=== PATIENT | female | born 1970 | race Caucasian/White ===

== ENCOUNTER 2017-10-07 09:51 | Emergency (ER) | payer OTHER, SELFPAY ==
[2017-10-07] MEDS ORDERED: ASPIRIN 81 MG CHEWABLE TABLET ONE (10:27)
[2017-10-07] MEDS ORDERED: FAMOTIDINE 20 MG/2 ML VIAL IV ONE (10:28)
[2017-10-07] MEDS ORDERED: ONDANSETRON 4 MG/2 ML VIAL ONE (10:28)
[2017-10-07 10:55] LABS: Absolute Lymphocytes (CBC) 1.1 K/uL (0.7-4.9); Absolute Monocytes 0.5 K/uL (0.1-1.3); Absolute Neutrophil 4.5 K/uL (1.8-8.0); Basophils % 0.7 % (0-1.3); Eosinophils % 2.2 % (0-4.4); Hematocrit 41.7 % (36.0-45.0); Lymphocytes % 18.1 % (15.3-44.8); MCH 28.9 pg (27.0-35.0); MCV 85.2 fL (80-100); MPV 8.3 fL (7.6-11.3); Monocytes % 7.4 % (3.3-12.3); RBC Red Blood Cell Count 4.89 M/uL (3.86-4.86)
[2017-10-07 10:59] LABS: Protime INR 1.2
[2017-10-07 11:29] LABS: Albumin 4.2 g/dL (3.2-5.5); Bilirubin Direct 0.1 mg/dL (0-0.2); Bilirubin Total 0.8 mg/dL (0.3-1.2); Magnesium 1.9 mg/dL (1.8-2.5); Protein, Total 7.9 g/dL (6.0-8.3)
[2017-10-07 11:31] LABS: CKMB Creatine Kinase MB 1.3 ng/ml (0.3-4.0)
[2017-10-07 11:35] LABS: Potassium 2.7 mEq/L (3.6-5.0)
[2017-10-07] MEDS ORDERED: POTASSIUM 25 MEQ EFFERV TAB ONE (11:46)
[2017-10-07] MEDS ORDERED: KCL 20 MEQ/100 mL IVPB 20 MEQ/100 ML BAG IV ONE (11:46)
--- NOTE | 2017-10-07 12:05 | RAD REPORT ---
EXAM DESCRIPTION: RAD - Chest Single View - 10/07/2017 11:50 am CLINICAL HISTORY: Chest pain. COMPARISON: 04/18/2017 FINDINGS: Portable technique limits examination quality. The lungs are grossly clear. The heart is normal in size. No displaced fractures. IMPRESSION: No acute intrathoracic process suspected.
[2017-10-07] MEDS ORDERED: NA CHLORIDE 0.9% 500 ML ONE (12:08)
[2017-10-07 12:13] LABS: Barbiturates NEGATIVE; Benzodiazepines NEGATIVE; Cocaine NEGATIVE; METHAMPHETAM NEGATIVE; Opiates NEGATIVE; Phencyclidine NEGATIVE; THC Cannibis NEGATIVE
[2017-10-07 12:36] LABS: Urine Blood NEGATIVE (NEG); Urine Glucose NEGATIVE (NEG); Urine Protein 1+ (NEG); Urine Specific Gravity 1.025 (1.005-1.030)
--- NOTE | 2017-10-07 12:55 | EKG ---
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
[2017-10-07 15:38] LABS: Potassium 3.5 mEq/L (3.6-5.0)
--- NOTE | 2017-10-07 16:15 | EDPHYS ---
Physician Documentation [facility] Name: Kyra Mead Age: 47 yrs Sex: Female : 1970 Arrival Date: 10/07/2017 Time: 09:55 Bed 5 Private MD: ED Physician Matthew Ngo HPI: 10/07 10:25 This 47 yrs old Female presents to ER via Wheelchair with complaints of Chest cp Pain. 10:25 The patient or guardian reports chest pain that is located primarily in the anterior cp chest wall, left. Onset: yesterday. 10:25 The pain does not radiate. cp 10:25 Associated signs and symptoms: Pertinent positives: nausea, anxiety, diarrhea for 4 cp weeks, Pertinent negatives: abdominal pain, diaphoresis, lower extremity pain, lower extremity swelling, palpitations, shortness of breath, syncope. 10:25 The chest pain is described as a pressure. Duration: The patient or guardian reports a cp single episode, that is still ongoing, and unchanged. Historical: - Allergies: 10:13 No Known Allergies; iw - Home Meds: 10:13 Celexa Oral [Active]; Hydrochlorothiazide Oral [Active]; Iron CR Oral [Active]; Zyrtec iw Oral [Active]; - PMHx: 10:13 Hypertension; iw - PSHx: 10:13 ; iw - Immunization history:: Adult Immunizations unknown. - Social history:: Smoking status: . ROS: 10:30 Constitutional: Negative for body aches, chills, fever, poor PO intake. cp 10:30 Eyes: Negative for injury, pain, redness, and discharge. cp 10:30 ENT: Negative for drainage from ear(s), ear pain, sore throat, difficulty swallowing, difficulty handling secretions. 10:30 Cardiovascular: Positive for chest pain, Negative for edema, palpitations. 10:30 Respiratory: Negative for cough, dyspnea on exertion, shortness of breath, wheezing. 10:30 Abdomen/GI: Positive for nausea, diarrhea, Negative for abdominal pain, constipation, anorexia, black/tarry stool, rectal bleeding. 10:30 Back: Negative for pain at rest, pain with movement. 10:30 : Negative for urinary symptoms. 10:30 Skin: Negative for cellulitis, diaphoresis, rash. 10:30 Neuro: Negative for altered mental status, headache, weakness. 10:30 Psych: Positive for anxiety. 10:30 All other systems are negative. Exam: 10:48 Constitutional: The patient appears in no acute distress, alert, awake, cp non-diaphoretic, non-toxic, well developed, well nourished. 10:48 Head/Face: Normocephalic, atraumatic. Eyes: Pupils equal round and reactive to light, cp extra-ocular motions intact. Lids and lashes normal. Conjunctiva and sclera are non-icteric and not injected. Cornea within normal limits. Periorbital areas with no swelling, redness, or edema. ENT: Nares patent. No nasal discharge, no septal abnormalities noted. Tympanic membranes are normal and external auditory canals are clear. Oropharynx with no redness, swelling, or masses, exudates, or evidence of obstruction, uvula midline. Mucous membranes moist. Neck: Trachea midline, no thyromegaly or masses palpated, and no cervical lymphadenopathy. Supple, full range of motion without nuchal rigidity, or vertebral point tenderness. No Meningismus. 10:48 Chest/axilla: Inspection: normal, Palpation: crepitus, is not appreciated, tenderness, that is mild, of the anterior aspect of left upper chest. 10:48 Cardiovascular: Rate: normal, Rhythm: regular, Pulses: Pulses are 2+ in right radial artery and left radial artery. Heart sounds: normal, no murmur, no rub, no gallop, Edema: is not appreciated, JVD: is not appreciated. 10:48 Respiratory: the patient does not display signs of respiratory distress, Respirations: normal, no use of accessory muscles, no retractions, no splinting, no tachypnea, labored breathing, is not present, Breath sounds: are clear throughout, no decreased breath sounds, no stridor, no wheezing. 10:48 Abdomen/GI: Inspection: abdomen appears normal, Bowel sounds: active, all quadrants, Palpation: soft, in all quadrants, mild abdominal tenderness, in the epigastric area, rebound tenderness, is not appreciated, voluntary guarding, is not appreciated, involuntary guarding, is not appreciated. 10:48 Back: CVA tenderness, is absent. 10:48 Skin: cellulitis, is not appreciated, no rash present. 12:00 ECG was reviewed by the Attending Physician. cp 15:35 ECG was reviewed by the Attending Physician. cp Vital Signs: 10:13 BP 112 / 64; Pulse 91; Resp 18 S; Temp 97.5; Pulse Ox 98% on R/A; Pain 2/10; iw 11:15 BP 116 / 78; Pulse 89; Resp 16; Pulse Ox 99% on R/A; tw2 12:13 BP 143 / 68; Pulse 75; Resp 14; Pulse Ox 99% on R/A; tw2 13:30 BP 138 / 72; Pulse 78; Resp 17; Pulse Ox 100% on R/A; Pain 0/10; sg 14:30 BP 142 / 70; Pulse 77; Resp 17 S; Pulse Ox 100% on R/A; Pain 0/10; sg 15:30 BP 136 / 74; Pulse 78; Resp 17 S; Pulse Ox 99% on R/A; Pain 0/10; sg 16:25 BP 139 / 72; Pulse 74; Resp 17; Pulse Ox 99% on R/A; Pain 0/10; sg MDM: 10:15 Patient medically screened. cp 11:00 Differential diagnosis: abnormal EKG, acute myocardial infarction, acute pericarditis, cp chest wall pain, costochondritis, esophagitis, gastritis, pneumonia, pneumothorax, pulmonary embolus, stable angina, unstable angina. 16:10 The patient was given aspirin in the Emergency Department. cp 16:10 Data reviewed: vital signs, nurses notes, lab test result(s), EKG, radiologic studies, cp plain films. Test interpretation: by ED physician or midlevel provider: ECG, plain radiologic studies. Counseling: I had a detailed discussion with the patient and/or guardian regarding: the historical points, exam findings, and any diagnostic results supporting the discharge/admit diagnosis, the presence of at least one elevated blood pressure reading (>120/80) during this emergency department visit, lab results, radiology results, to return to the emergency department if symptoms worsen or persist or if there are any questions or concerns that arise at home. Response to treatment: the patient's symptoms have markedly improved after treatment, VSS. Symptoms improved with IV fluids and meds. Initial and repeat EKGs and troponin negative. Will discharge to home for continued monitoring. 10/07 10:18 Order name: Basic Metabolic Panel; Complete Time: 11:36 cp 10/07 12:05 Interpretation: Normal except: GLUC 145; K 2.7; CRE 1.08; GFR 54. cp / 10:18 Order name: BNP; Complete Time: 12:04 cp 10/07 10:18 Order name: CBC with Diff; Complete Time: 11:09 cp 10/07 11:09 Interpretation: Normal except: RBC 4.89; RDW 15.8. cp / 10:18 Order name: Ckmb; Complete Time: 11:36 cp 10/07 10:18 Order name: CPK; Complete Time: 11:36 cp 10/07 10:18 Order name: LFT's; Complete Time: 11:36 cp 10/07 15:47 Interpretation: Normal except: SGOT 51; SGPT 62; GLOB 3.7. cp 10/07 10:18 Order name: Magnesium; Complete Time: 11:36 cp 10/07 10:18 Order name: PT-INR; Complete Time: 11:09 cp 10/07 11:09 Interpretation: Abnormal: PT 14.2. cp 10/07 10:18 Order name: Ptt, Activated; Complete Time: 11:09 cp 10/07 10:18 Order name: Troponin (emerg Dept Use Only); Complete Time: 11:36 cp 10/07 10:45 Order name: UDS; Complete Time: 13:58 cp 10/07 13:58 Interpretation: Reviewed. cp 10/07 10:56 Order name: Urine Dipstick--Ancillary (enter results); Complete Time: 13:58 bd 10/07 13:58 Interpretation: Normal except: UPROT 1+. cp 10/07 10:56 Order name: Urine --Ancillary (enter results); Complete Time: 13:58 bd 10/07 14:42 Order name: BMP; Complete Time: 15:46 cp 10/07 15:48 Interpretation: Normal except: K 3.5; GLUC 126; CRE 1.06; GFR 56. cp 10/07 10:18 Order name: Urine Test (obtain specimen); Complete Time: 10:56 cp 10/07 10:18 Order name: XRAY Chest (1 view); Complete Time: 13:58 cp 10/07 10:18 Order name: EKG; Complete Time: 10:19 cp 10/07 10:18 Order name: Cardiac monitoring; Complete Time: 10:26 cp 04/20 10:18 Order name: EKG - Nurse/Tech; Complete Time: 10: cp 10/07 10:18 Order name: IV Saline Lock; Complete Time: : cp 10/07 10:18 Order name: Labs collected and sent; Complete Time: 10: cp 10/07 13:23 Order name: Diet Regular; Complete Time: 13:23 iw 10/07 14:42 Order name: Troponin I; Complete Time: 15:47 cp 10/07 15:48 Interpretation: Within normal limits: TROP < 0.03. cp 10/07 15:38 Order name: EKG Electrocardiogram EDMS 10/07 10:18 Order name: O2 Per Protocol; Complete Time: 10: cp 10/07 10:18 Order name: O2 Sat Monitoring; Complete Time: : cp 10/07 10:18 Order name: Urine Dipstick-Ancillary (obtain specimen); Complete Time: 10:56 cp 10/07 14:42 Order name: EKG - Nurse/Tech; Complete Time: 15:25 cp EC:00 Rate is 76 beats/min. Rhythm is regular. MN interval is normal. QRS interval is cp prolonged at 102 msec. QT interval is normal. Interpreted by me. Reviewed by me. 15:35 Rate is 71 beats/min. Rhythm is regular. MN interval is normal. QRS interval is normal. cp QT interval is normal. No ST changes noted. Interpreted by me. Reviewed by me. Administered Medications: 10:40 Drug: Zofran 4 mg Route: IVP; Site: right antecubital; sg 11:45 Follow up: Response: No adverse reaction; Nausea is decreased sg 10:40 Drug: Pepcid 20 mg Route: IVP; Site: right antecubital; sg 11:45 Follow up: Response: No adverse reaction sg 11:10 Drug: Aspirin Chewable Tablet 324 mg Route: PO; sg 12:16 Follow up: Response: No adverse reaction sg 12:00 Drug: Potassium Chloride 20 mEq Route: IV; Rate: calculated rate; Site: right sg antecubital; 12:00 Drug: Potassium Effervescent Tablet 50 mEq Route: PO; sg 13:25 Follow up: Response: No adverse reaction sg Disposition: 10/07/17 16:14 Discharged to Home. Impression: Chest pain, unspecified, Diarrhea, unspecified, Hypokalemia. - Condition is Stable. - Discharge Instructions: Food Choices to Help Relieve Diarrhea, Adult, Nonspecific Chest Pain, Diarrhea, Potassium Content of Foods, Aspirin and Your Heart, Hypokalemia. - Prescriptions for Potassium Chloride 10 mEq Oral Capsule, Sustained Release - take 1 tablet by ORAL route every 12 hours for 5 days; 10 tablet. Bentyl 20 mg Oral Tablet - take 1 tablet by ORAL route every 6 hours As needed; 20 tablet. Zofran 4 mg Oral Tablet - take 1 tablet by ORAL route every 12 hours As needed; 20 tablet. - Work release form, Medication Reconciliation Form, Thank You Letter, Antibiotic Education, Prescription Opioid Use form. - Follow up: Private Physician; When: 2 - 3 days; Reason: Recheck today's complaints. Follow up: Fady Saucedo MD; When: 2 - 3 days; Reason: diarrhea. - Problem is new. - Symptoms have improved. Addendum: 10/22/2017 19:46 Co-signature as Attending Physician, Matthew Ngo MD I agree with the assessment and k dr plan of care. Signatures: Dispatcher [employer] EDMS Arnold Torres RN RN sg Rittger, Kevin, MD MD kdr Leona Bejarano RN RN iw Rod Padilla PA PA jr8 Carlos Lopez PA PA cp Corrections: (The following items were deleted from the chart) 10/07 11:10/06 10:30 Constitutional: Negative for body aches, chills, fever, poor PO intake, cp cp 10/07 11:10/06 10:30 Eyes: Negative for injury, pain, redness, and discharge, cp cp 10/07 11:10/06 10:30 ENT: Negative for drainage from ear(s), ear pain, sore throat, difficulty cp swallowing, difficulty handling secretions, cp 10/07 11:10/06 10:30 Cardiovascular: Positive for chest pain, Negative for edema, palpitations, cp cp 10/07 11:10/06 10:30 Respiratory: Negative for cough, shortness of breath, wheezing, cp cp 10/07 11:10/06 10:30 Abdomen/GI: Positive for abdominal pain, nausea, diarrhea, Negative for cp vomiting, constipation, anorexia, black/tarry stool, rectal bleeding, cp 10/07 11:12 10/06 10:30 Back: Negative for pain at rest, pain with movement, radiated pain, cp cp 10/07 11:12 10/06 10:30 : Negative for urinary symptoms, cp cp 10/07 11:10/06 10:30 Skin: Negative for cellulitis, rash, cp cp 10/07 11:12 10/06 10:30 Neuro: Negative for altered mental status, headache, syncope, near syncope, cp weakness, cp 10/07 11:12 10/06 10:30 All other systems are negative, cp cp 10/07 16:26 16:14 10/07/2017 16:14 Discharged to Home. Impression: Chest pain, unspecified; iw Diarrhea, unspecified; Hypokalemia. Condition is Stable. Forms are Medication Reconciliation Form, Thank You Letter, Antibiotic Education, Prescription Opioid Use. Follow up: Private Physician; When: 2 - 3 days; Reason: Recheck today's complaints. Follow up: Fady Saucedo; When: 2 - 3 days; Reason: diarrhea. Problem is new. Symptoms have improved. cp
--- NOTE | 2017-10-07 16:15 | ER ---
Nurse's Notes [facility] Name: Kyra Mead Age: 47 yrs Sex: Female : 1970 Arrival Date: 10/07/2017 Time: 09:55 Bed 5 Private MD: Diagnosis: Chest pain, unspecified;Diarrhea, unspecified;Hypokalemia Presentation: 10/07 10:12 Presenting complaint: Patient states: is having really bad anxiety, takes Celexa and iw thinks she may have taken an extra pill yesterday, started having left sided CP yesterday, constant, dull, 07/30. Transition of care: patient was not received from another setting of care. Onset of symptoms was October 06, 2017. Initial Sepsis Screen: Does the patient meet any 2 criteria? No. Patient's initial sepsis screen is negative. Does the patient have a suspected source of infection? No. Patient's initial sepsis screen is negative. Care prior to arrival: None. 10:12 Method Of Arrival: Wheelchair iw 10:12 Acuity: CASSY 3 iw Historical: - Allergies: 10:13 No Known Allergies; iw - Home Meds: 10:13 Celexa Oral [Active]; Hydrochlorothiazide Oral [Active]; Iron CR Oral [Active]; Zyrtec iw Oral [Active]; - PMHx: 10:13 Hypertension; iw - PSHx: 10:13 ; iw - Immunization history:: Adult Immunizations unknown. - Social history:: Smoking status: . Screenin:15 Abuse screen: Denies threats or abuse. Denies injuries from another. Nutritional sg screening: No deficits noted. Tuberculosis screening: No symptoms or risk factors identified. Never had TB. Fall Risk None identified. Assessment: 10:15 General: Appears in no apparent distress. comfortable, well groomed, well developed, sg well nourished, Behavior is cooperative, appropriate for age, anxious, fussy. Pain: Denies pain. Quality of pain is described as reports that it is more anxiety than it is pain. Neuro: Level of Consciousness is awake, alert, obeys commands, Oriented to person, place, time, Lead Java Programmer are equal bilaterally Moves all extremities. Full function Gait is steady, Speech is normal, Facial symmetry appears normal. Cardiovascular: Heart tones S1 S2 present Capillary refill is brisk in bilateral fingers Chest pain denies CP at this time, reports anxiety. Respiratory: Airway is patent Respiratory effort is even, unlabored, Respiratory pattern is regular, symmetrical, Denies cough, shortness of breath labored breathing. GI: No deficits noted. No signs and/or symptoms were reported involving the gastrointestinal system. : No signs and/or symptoms were reported regarding the genitourinary system. EENT: No deficits noted. No signs and/or symptoms were reported regarding the EENT system. Derm: No deficits noted. Skin is pink, warm \\T\\ dry. Musculoskeletal: No signs and/or symptoms reported regarding the musculoskeletal system. 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 10:45 Reassessment: pt assisted to the restoom, even steady gait, pt provided clean catch sg urine specimen, will continue to monitor. 12:00 Reassessment: Patient appears in no apparent distress at this time. Patient and/or sg family updated on plan of care and expected duration. Pain level reassessed. Patient is alert, oriented x 3, equal unlabored respirations, skin warm/dry/pink. Reassessment: pt c/o anxiety at this time, informed awaiting urine sample results as ordered by the PCP and will ask again for orders for anxiety medication, pt stated understanding, IV fluids infusing at this time, pt remains on monitors, will continue to monitor. General: Behavior is calm, cooperative, appropriate for age, quiet. 13:30 Reassessment: Patient appears in no apparent distress at this time. Patient and/or sg family updated on plan of care and expected duration. Pain level reassessed. Patient is alert, oriented x 3, equal unlabored respirations, skin warm/dry/pink. pt requesting food at this time, Shaji ADLER notified, orders received for a regular diet tray and to repeat the potassium levels after the potassium has infused. pt stated understanding. 14:30 Reassessment: Patient appears in no apparent distress at this time. Patient and/or sg family updated on plan of care and expected duration. Pain level reassessed. Patient is alert, oriented x 3, equal unlabored respirations, skin warm/dry/pink. Patient denies pain at this time. 15:30 Reassessment: Patient appears in no apparent distress at this time. Patient and/or sg family updated on plan of care and expected duration. Pain level reassessed. Patient is alert, oriented x 3, equal unlabored respirations, skin warm/dry/pink. updated on lab results, pt stated understanding, C.Jessica ADLER updated on lab results, no new orders received at this time, awaiting a dispo, will continue to monitor Patient denies pain at this time. Patient states feeling better. Patient states symptoms have improved. Vital Signs: 10:13 BP 112 / 64; Pulse 91; Resp 18 S; Temp 97.5; Pulse Ox 98% on R/A; Pain 2/10; iw 11:15 BP 116 / 78; Pulse 89; Resp 16; Pulse Ox 99% on R/A; tw2 12:13 BP 143 / 68; Pulse 75; Resp 14; Pulse Ox 99% on R/A; tw2 13:30 BP 138 / 72; Pulse 78; Resp 17; Pulse Ox 100% on R/A; Pain 0/10; sg 14:30 BP 142 / 70; Pulse 77; Resp 17 S; Pulse Ox 100% on R/A; Pain 0/10; sg 15:30 BP 136 / 74; Pulse 78; Resp 17 S; Pulse Ox 99% on R/A; Pain 0/10; sg 16:25 BP 139 / 72; Pulse 74; Resp 17; Pulse Ox 99% on R/A; Pain 0/10; sg ED Course: 09:55 Patient arrived in ED. na 10:10 Arnold Torres, ANIA is Primary Nurse. sg 10:10 Carlos Lopez PA is PHCP. cp 10:10 Matthew Ngo MD is Attending Physician. cp 10:13 Triage completed. iw 10:13 Arm band placed on. iw 10:15 Patient has correct armband on for positive identification. Placed in gown. Bed in low sg position. Side rails up X2. security monitor on. Pulse ox on. NIBP on. Warm blanket given. Verbal reassurance given. Head of bed elevated. 10:15 Initial lab(s) drawn, by ED staff, sent to lab. IV inserted by watershed program manager Yaron. Inserted sg saline lock: 20 gauge in right antecubital area, using aseptic technique. Blood collected. Patient maintains SpO2 saturation greater than 95% on room air. 11:46 X-ray completed. Portable x-ray completed in exam room. Patient tolerated procedure ml well. 11:49 XRAY Chest (1 view) In Process Unspecified. EDMS 12:05 EKG done, by ED staff, reviewed by Carlos ADLER. jb1 15:18 Repeat lab(s) drawn. by ED staff, sent to lab. iw 15:35 EKG done, by fisheries technician. reviewed by Carlos ADLER. vh 16:10 No provider procedures requiring assistance completed. sg 16:13 Fady Saucedo MD is Referral Physician. cp 16:20 IV discontinued, intact, bleeding controlled, No redness/swelling at site. Pressure sg dressing applied. Administered Medications: 10:40 Drug: Zofran 4 mg Route: IVP; Site: right antecubital; sg 11:45 Follow up: Response: No adverse reaction; Nausea is decreased sg 10:40 Drug: Pepcid 20 mg Route: IVP; Site: right antecubital; sg 11:45 Follow up: Response: No adverse reaction sg 11:10 Drug: Aspirin Chewable Tablet 324 mg Route: PO; sg 12:16 Follow up: Response: No adverse reaction sg 12:00 Drug: Potassium Chloride 20 mEq Route: IV; Rate: calculated rate; Site: right sg antecubital; 12:00 Drug: Potassium Effervescent Tablet 50 mEq Route: PO; sg 13:25 Follow up: Response: No adverse reaction sg Outcome: 16:14 Discharge ordered by . cp 16:20 Discharged to home ambulatory, with family. sg 16:20 Condition: good 16:20 Discharge instructions given to patient, Instructed on discharge instructions, follow up and referral plans. medication usage, safety practices, Demonstrated understanding of instructions, follow-up care, medications, Prescriptions given X 3. 16:26 Patient left the ED. 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
[2017-10-07 16:42] VITALS: TEMP 97.5
[2017-10-07 16:43] VITALS: O2SAT 99
[2017-10-07 16:45] VITALS: BP 143/68
--- NOTE | 2017-10-07 22:11 | EKG ---
Test Date: 2017-10-07 Test Time: 15:28:27 Business Liaison Manager: GREG MEASUREMENT RESULTS: Intervals: Rate: 71 VT: 148 QRSD: 96 QT: 412 QTc: 447 [place]: P: 32 VT: 148 QRS: -12 T: 65 INTERPRETIVE STATEMENTS: Normal sinus rhythm Minimal voltage criteria for LVH, may be normal variant Nonspecific T wave abnormality Abnormal ECG Compared to ECG 10/07/2017 11:54:02 Left ventricular hypertrophy now present T-wave abnormality still present Electronically Signed On 10-07-17 22:10:54 CDT by Jeremy Hernandez
== END 2017-10-07 16:26 | disposition home or self-care (01) ==
LOC: ER 09:51
DX: R19.7 Diarrhea, unspecified (principal); E87.6 Hypokalemia; I10 Essential (primary) hypertension
CPT/HCPCS: 36415; 71045; 80048; 80076; 80307; 81003; 81025; 82550; 82553; 83735; 83880; 84484; 85025; 85610; 85730; 93005; 96374; 96375; 99285; J2405

== ENCOUNTER 2017-10-09 09:38 | Observation (INO) | payer SELFPAY ==
[2017-10-09] MEDS ORDERED: NA CHLORIDE 0.9% 1,000 ML ONE (10:04)
[2017-10-09] MEDS ORDERED: ASPIRIN 81 MG CHEWABLE TABLET ONE (10:04)
[2017-10-09 10:26] LABS: Absolute Lymphocytes (CBC) 1.5 K/uL (0.7-4.9); Absolute Monocytes 0.4 K/uL (0.1-1.3); Absolute Neutrophil 4.8 K/uL (1.8-8.0); Basophils % 0.6 % (0-1.3); Eosinophils % 3.2 % (0-4.4); Hematocrit 41.8 % (36.0-45.0); Lymphocytes % 20.8 % (15.3-44.8); MCH 28.5 pg (27.0-35.0); MCV 87.3 fL (80-100); MPV 8.5 fL (7.6-11.3); Monocytes % 6.1 % (3.3-12.3); RBC Red Blood Cell Count 4.79 M/uL (3.86-4.86)
[2017-10-09 10:29] LABS: Protime INR 1.16
[2017-10-09 10:34] LABS: Potassium 3.5 mEq/L (3.6-5.0)
[2017-10-09 10:40] LABS: Albumin 4.2 g/dL (3.2-5.5); Bilirubin Direct 0.1 mg/dL (0-0.2); Bilirubin Total 0.7 mg/dL (0.3-1.2); Magnesium 1.8 mg/dL (1.8-2.5); Protein, Total 7.7 g/dL (6.0-8.3)
[2017-10-09 10:42] LABS: CKMB Creatine Kinase MB 1.3 ng/ml (0.3-4.0)
--- NOTE | 2017-10-09 10:55 | ER ---
Nurse's Notes [facility] Name: Kyra Mead Age: 47 yrs Sex: Female : 1970 Arrival Date: 10/09/2017 Time: 09:39 Bed 5 Private MD: Diagnosis: Other chest pain;Diarrhea, unspecified;Hypokalemia Presentation: 10/09 09:49 Presenting complaint: Patient states: "I was here Tuesday for chest pain and diarrhea, sv they found out my potassium was low and I was discharged with potassium pills. I felt better when I left but then Tuesday I was feeling bad again and then today was no better. I haven't had a bowel movement since Tuesday. I'm having twinges on the left side of my chest. The pain starts in my left back side and comes to the front of my left chest.". Transition of care: patient was not received from another setting of care. Onset of symptoms was October 08, 2017. Care prior to arrival: None. 09:49 Method Of Arrival: Wheelchair sv 09:49 Acuity: CASSY 3 sv 09:50 Initial Sepsis Screen: Does the patient meet any 2 criteria? No. Patient's initial sv sepsis screen is negative. Does the patient have a suspected source of infection? No. Patient's initial sepsis screen is negative. Triage Assessment: 09:50 General: Appears uncomfortable, well developed, Behavior is cooperative, anxious. Pain: sv Complains of pain in left scapular area Pain radiates to anterior aspect of left upper chest Pain currently is 4 out of 10 on a pain scale. Pain began 2-3 days ago. Is intermittent, Also complains of constipation, sleeplessness. EENT: No signs and/or symptoms were reported regarding the EENT system. Neuro: Level of Consciousness is awake, alert, obeys commands, Oriented to person, place, time, situation, Moves all extremities. Full function Gait is steady, Speech is normal. Cardiovascular: Patient's skin is warm and dry. Rhythm is sinus rhythm. Respiratory: Respiratory effort is even, unlabored, Respiratory pattern is regular, symmetrical. GI: Reports constipation, since Tuesday Pt stated that she had diarrhea before Tuesday for about 4 weeks. : No signs and/or symptoms were reported regarding the genitourinary system. Derm: Skin is pink, warm \\T\\ dry. 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 - Social history:: Smoking status: Patient uses tobacco products, smokes one pack cigarettes per day. - Family history:: not pertinent. - Ebola Screening: : No symptoms or risks identified at this time. Screenin:02 Abuse screen: Denies threats or abuse. Denies injuries from another. Nutritional sv screening: No deficits noted. Tuberculosis screening: No symptoms or risk factors identified. Fall Risk None identified. Assessment: 10:12 Reassessment: See triage assessment. sv 10:54 Reassessment: Patient appears in no apparent distress at this time. No changes from sv previously documented assessment. Patient and/or family updated on plan of care and expected duration. Pain level reassessed. Patient is alert, oriented x 3, equal unlabored respirations, skin warm/dry/pink. 11:09 Reassessment: Patient appears in no apparent distress at this time. No changes from sv previously documented assessment. Patient and/or family updated on plan of care and expected duration. Pain level reassessed. Patient is alert, oriented x 3, equal unlabored respirations, skin warm/dry/pink. Informed of admission. Vital Signs: 09:49 BP 125 / 63; Pulse 75 MON; Resp 15; Temp 97.6(TE); Pulse Ox 100% on R/A; Weight 119.75 sv kg (R); Height 5 ft. 6 in. (167.64 cm) (R); Pain 4/10; 10:54 BP 130 / 69; Pulse 61 MON; Resp 16; Pulse Ox 99% ; sv 12:05 BP 126 / 65; Pulse 57; Resp 18; Pulse Ox 100% ; sv 09:49 Body Mass Index 42.61 (119.75 kg, 167.64 cm) sv 09:49 Sinus Rhythm sv 10:54 Sinus Rhythm sv ED Course: 09:39 Patient arrived in ED. as 09:48 Talat, Mary, RN is Primary Nurse. sv 09:50 Patient has correct armband on for positive identification. Placed in gown. Bed in low sv position. Call light in reach. Side rails up X2. security monitor on. Pulse ox on. NIBP on. Door closed. Head of bed elevated. 09:50 Warm blanket given. sv 09:52 Carlos Gill MD is Attending Physician. anastacia 09:59 Triage completed. sv 10:02 Arm band placed on right wrist. sv 10:05 Initial lab(s) drawn, by me, sent to lab. Inserted saline lock: 22 gauge in right sv forearm, using aseptic technique. ,using aseptic technique. diffusics Blood collected. Flushed right forearm with 5 ml normal saline. 10:13 X-ray completed. Portable x-ray completed in exam room. Patient tolerated procedure kp1 well. 10:14 XRAY Chest (1 view) In Process Unspecified. EDMS 10:45 Warm blanket given. sv 10:54 Tunde Guajardo MD is Hospitalizing Provider. anastacia 12:07 No provider procedures requiring assistance completed. Patient maintains SpO2 sg saturation greater than 95% on room air. 12:08 Patient admitted, IV remains in place. intact, No redness/swelling at site. Pressure sg dressing applied. Administered Medications: 10:09 Drug: NS 0.9% 1000 ml Route: IV; Rate: 1 bolus; Site: right forearm; sv 10:55 Follow up: Response: No adverse reaction; IV Status: Completed infusion; IV Intake: sv 1000ml 10:09 Drug: Aspirin 162 mg Route: PO; sv 10:55 Follow up: Response: No adverse reaction sv 11:09 Drug: Potassium Chloride 40 mEq Route: PO; sv 12:02 Follow up: Response: No adverse reaction sg 12:02 Follow up: Response: No adverse reaction sg 11:09 Drug: Lovenox 100 mg Route: Sub-Q; Site: left upper abdomen; sv 12:02 Follow up: Response: No adverse reaction sg Intake: 10:55 IV: 1000ml; Total: 1000ml. sv Outcome: 10:55 Decision to Hospitalize by Provider. anastacia 12:07 Admitted to Tele accompanied by cecilio, via wheelchair, room 407, with chart, Report sg called to Aline JORGE 12:07 Condition: good 12:07 Instructed on the need for admit, safety practices. 12:21 Patient left the ED. sv Signatures: Dispatcher [employer] Mary Osorio RN RN sv Gay, Steven, RN RN sg Anderson, Corey, MD MD cha Martinez, Amelia as Poole, [facility]
--- NOTE | 2017-10-09 10:56 | EDPHYS ---
Physician Documentation [facility] Name: Kyra Mead Age: 47 yrs Sex: Female : 1970 Arrival Date: 10/09/2017 Time: 09:39 Bed 5 Private MD: ED Physician Carlos Gill HPI: 10/09 09:58 This 47 yrs old Female presents to ER via Unassigned with complaints of Chest anastacia Pain. 09:58 The patient or guardian reports chest pain that is located primarily in the substernal anastacia area. Onset: this morning, today. 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 - Social history:: Smoking status: Patient uses tobacco products, smokes one pack cigarettes per day. - Family history:: not pertinent. - Ebola Screening: : No symptoms or risks identified at this time. ROS: 09:58 Constitutional: Negative for fever, chills, and weight loss, Eyes: Negative for injury, anastacia pain, redness, and discharge, ENT: Negative for injury, pain, and discharge, Neck: Negative for injury, pain, and swelling, Cardiovascular: Negative for chest pain, palpitations, and edema, Back: Negative for injury and pain, : Negative for injury, bleeding, discharge, and swelling, MS/Extremity: Negative for injury and deformity, Skin: Negative for injury, rash, and discoloration, Neuro: Negative for headache, weakness, numbness, tingling, and seizure, Psych: Negative for depression, anxiety, suicide ideation, homicidal ideation, and hallucinations, Allergy/Immunology: Negative for hives, rash, and allergies, Endocrine: Negative for neck swelling, polydipsia, polyuria, polyphagia, and marked weight changes, Hematologic/Lymphatic: Negative for swollen nodes, abnormal bleeding, and unusual bruising. 09:58 Cardiovascular: Positive for chest pain. 09:58 Respiratory: Negative for cough, shortness of breath. 09:58 Abdomen/GI: Positive for abdominal pain, diarrhea. Exam: 09:58 Constitutional: This is a well developed, well nourished patient who is awake, alert, anastacia and in no acute distress. Head/Face: Normocephalic, atraumatic. Eyes: Pupils equal round and reactive to light, extra-ocular motions intact. Lids and lashes normal. Conjunctiva and sclera are non-icteric and not injected. Cornea within normal limits. Periorbital areas with no swelling, redness, or edema. ENT: Nares patent. No nasal discharge, no septal abnormalities noted. Tympanic membranes are normal and external auditory canals are clear. Oropharynx with no redness, swelling, or masses, exudates, or evidence of obstruction, uvula midline. Mucous membranes moist. Neck: Trachea midline, no thyromegaly or masses palpated, and no cervical lymphadenopathy. Supple, full range of motion without nuchal rigidity, or vertebral point tenderness. No Meningismus. Chest/axilla: Normal chest wall appearance and motion. Nontender with no deformity. No lesions are appreciated. Cardiovascular: Regular rate and rhythm with a normal S1 and S2. No gallops, murmurs, or rubs. Normal PMI, no JVD. No pulse deficits. Respiratory: Lungs have equal breath sounds bilaterally, clear to auscultation and percussion. No rales, rhonchi or wheezes noted. No increased work of breathing, no retractions or nasal flaring. Abdomen/GI: Soft, non-tender, with normal bowel sounds. No distension or tympany. No guarding or rebound. No evidence of tenderness throughout. Back: No spinal tenderness. No costovertebral tenderness. Full range of motion. Skin: Warm, dry with normal turgor. Normal color with no rashes, no lesions, and no evidence of cellulitis. MS/ Extremity: Pulses equal, no cyanosis. Neurovascular intact. Full, normal range of motion. Neuro: Awake and alert, GCS 15, oriented to person, place, time, and situation. Cranial nerves II-XII grossly intact. Motor strength 5/5 in all extremities. Sensory grossly intact. Cerebellar exam normal. Normal gait. Psych: Awake, alert, with orientation to person, place and time. Behavior, mood, and affect are within normal limits. 10:00 Musculoskeletal/extremity: DVT Exam: No signs of deep vein thrombosis. no pain, no anastacia swelling, no tenderness, negative Homans' sign noted on exam, no appreciated bluish discoloration, no erythema, no increased warmth. Vital Signs: 09:49 BP 125 / 63; Pulse 75 MON; Resp 15; Temp 97.6(TE); Pulse Ox 100% on R/A; Weight 119.75 sv kg (R); Height 5 ft. 6 in. (167.64 cm) (R); Pain 4/10; 10:54 BP 130 / 69; Pulse 61 MON; Resp 16; Pulse Ox 99% ; sv 12:05 BP 126 / 65; Pulse 57; Resp 18; Pulse Ox 100% ; sv 09:49 Body Mass Index 42.61 (119.75 kg, 167.64 cm) sv 09:49 Sinus Rhythm sv 10:54 Sinus Rhythm sv MDM: 09:52 Patient medically screened. [facility] 10:00 Data reviewed: vital signs, nurses notes, lab test result(s), EKG, radiologic studies, [facility] CT scan, plain films. 10/09 09:57 Order name: Basic Metabolic Panel; Complete Time: 10:51 [facility] 10/09 09:57 Order name: BNP; Complete Time: 10:51 [facility] 10/09 09:57 Order name: CBC with Diff; Complete Time: 10:51 [facility] 10/09 09:57 Order name: Ckmb; Complete Time: 10:51 [facility] 10/09 09:57 Order name: CPK; Complete Time: 10:51 [facility] 10/09 09:57 Order name: LFT's; Complete Time: 10:51 [facility] 10/09 09:57 Order name: Magnesium; Complete Time: 10:51 [facility] 10/09 09:57 Order name: PT-INR; Complete Time: 10:51 [facility] 10/09 09:57 Order name: Ptt, Activated; Complete Time: 10:51 [facility] 10/09 09:57 Order name: Troponin (emerg Dept Use Only); Complete Time: 10:51 [facility] 10/09 09:57 Order name: Lipase; Complete Time: 10:51 [facility] 10/09 09:57 Order name: Stool Culture [facility] 10/09 09:57 Order name: Fecal Leukocyte Stain [facility] 10/09 09:57 Order name: XRAY Chest (1 view); Complete Time: 11:32 [facility] 10/09 09:57 Order name: EKG; Complete Time: 09:58 [facility] 10/09 09:57 Order name: Cardiac monitoring; Complete Time: 10:03 [facility] 10/09 09:57 Order name: EKG - Nurse/Tech; Complete Time: 10: [facility] 10/09 09:57 Order name: IV Saline Lock; Complete Time: 10: [facility] 10/09 09:57 Order name: Labs collected and sent; Complete Time: 10:07 [facility] 10/09 09:57 Order name: O2 Per Protocol; Complete Time: 10: [facility] 10/09 09:57 Order name: O2 Sat Monitoring; Complete Time: 10: [facility] 10/09 09:57 Order name: Urine Culture anastacia Administered Medications: 10:09 Drug: NS 0.9% 1000 ml Route: IV; Rate: 1 bolus; Site: right forearm; sv 10:55 Follow up: Response: No adverse reaction; IV Status: Completed infusion; IV Intake: sv 1000ml 10:09 Drug: Aspirin 162 mg Route: PO; sv 10:55 Follow up: Response: No adverse reaction sv 11:09 Drug: Potassium Chloride 40 mEq Route: PO; sv 12:02 Follow up: Response: No adverse reaction sg 12:02 Follow up: Response: No adverse reaction sg 11:09 Drug: Lovenox 100 mg Route: Sub-Q; Site: left upper abdomen; sv 12:02 Follow up: Response: No adverse reaction sg Disposition: 10/09/17 10:55 Hospitalization ordered by Tunde Guajardo for Observation. Preliminary diagnosis are Other chest pain, Diarrhea, unspecified, Hypokalemia. - Bed requested for Telemetry/MedSurg (observation). - Status is Observation. sv - Condition is Stable. - Problem is new. - Symptoms have improved. UTI on Admission? No Signatures: Dispatcher [employer] EDMS Mary Gilliland RN RN sv Anderson, Corey, MD MD cha Smirch, Shelby, RN RN ss Gay, Steven RN sg Corrections: (The following items were deleted from the chart) 09:58 Occult Blood+PA.LAB.BRZ ordered. EDMS EDMS
--- NOTE | 2017-10-09 10:56 | RAD REPORT ---
EXAM DESCRIPTION: RAD - Chest Single View - 10/09/2017 10:16 am CLINICAL HISTORY: Chest pain. COMPARISON: 10/07/2017, 04/18/2017 FINDINGS: Portable technique limits examination quality. The lungs are grossly clear. The heart is normal in size. No displaced fractures. IMPRESSION: No acute intrathoracic process suspected.
[2017-10-09] MEDS ORDERED: ENOXAPARIN 100 MG/ML SYR SQ ONE (11:04)
[2017-10-09] MEDS ORDERED: POTASSIUM CL SA 10 MEQ TAB PO ONE (11:04)
[2017-10-09] MEDS ORDERED: ACETAMINOPHEN 500 MG TAB PO PRN (11:16)
[2017-10-09] MEDS ORDERED: ONDANSETRON 4 MG/2 ML VIAL IV PRN (11:16)
[2017-10-09] MEDS: ENOXAPARIN 40 MG/0.4 ML SQ SCH (12:00)
[2017-10-09] MEDS: NA CHLORIDE 0.9% 1,000 ML IV SCH ×2 (12:00→21:45)
[2017-10-09 13:24] VITALS: BMI 42.3
[2017-10-09] MEDS ORDERED: LORazepam 2 MG/ML VIAL IV ONE (13:50)
--- NOTE | 2017-10-09 18:29 | EKG ---
Test Date: 2017-10-09 Test Time: 10:02:22 Consumer Insight Manager: MEASUREMENT RESULTS: Intervals: Rate: 69 NH: 150 QRSD: 96 QT: 412 QTc: 441 [place]: P: 39 NH: 150 QRS: -14 T: 119 INTERPRETIVE STATEMENTS: Normal sinus rhythm Nonspecific T wave abnormality Abnormal ECG Compared to ECG 10/07/2017 15:28:27 Left ventricular hypertrophy no longer present T-wave abnormality still present Electronically Signed On 10-09-17 18:29:02 CDT by Jeremy Hernandez
[2017-10-09] MEDS ORDERED: MELATONIN 5 MG TABLET PO SCH (21:00)
[2017-10-09] MEDS ORDERED: BUSPIRONE HCL 5 MG TABLET PO SCH (21:00)
--- NOTE | 2017-10-09 23:59 | HP ---
Date of Admission: 10/09/2017 Chief Complaint: Generalized malaise and tingling in her back. Primary Care Physician: Lee Connolly [facility] History Of Present Illness: The patient is a 47-year-old female with past medical history of depress ion, anxiety, OCD, diabetes, borderline diabetes, hypertension, who is recently discharged from the [facility] on 10/07/2017 for chest pain. The patient was found to have low potassium, which was repla maurisio and she was discharged. The patient also reports some diarrhea over the past month, which is now resolved since her visit to the ER. She does report some nausea, weight loss of approximately 17 po unds in the past 2 weeks due to diarrhea and decreased p.o. intake. However, now states that she is constipated and is hungry once the eat. The patient denies any blood in the stool. No vomiting. No fevers or chills. The patient does report some tingling in her back, which radiates to the front of her chest. The patient more than anything reports anxiety. She states that she was on Xanax previo usly. However, the [facility] does not prescribe controlled substances and currently as scarlett for something for her anxiety and to help her sleep. The patient's symptoms are constant, moder ate, progressively worsening. No alleviating or aggravating factors. Past Medical History: Hypertension, borderline diabetes, depression, anxiety, and OCD. Surgical History: x3. Allergies: NO KNOWN DRUG ALLERGIES. Medications: Reviewed. Social History: The patient drinks alcohol occasionally. Smokes a pack per day since age of 15, did quit in the middle for little bit. No illicit drug use. Family History: Positive for CVA and diabetes in the mom. Father at the age of 34 with a brain aneurysm. Review of Systems: An 11-point system reviewed, negative except as above. Physical Examination: Vital Signs: Temperature 97.6, heart rate 75, blood pressure 125/63, respirations 15, O2 saturation 100% on room air. General: Awake, alert, oriented x3, not in any acute distress, morbidly obese female. BMI 42.3. HEENT: Normocephalic and atraumatic. PERRLA. EOMI. Moist mucous membranes. Oropharynx is clear. Poor dentition. Conjunctiva anicteric. Neck: Supple. No JVD. Trachea midline. CV: S1, S2. Regular rate and rhythm. Peripheral pulses present. No murmurs. Respiratory: Clear to auscultation bilaterally. No wheezing. No stridor. No use of accessory musc les. Gastrointestinal: Abdomen is soft, nontender, nondistended. Positive bowel sounds. No guarding or rigidity. Extremities: No clubbing, cyanosis. Mild pedal edema. No calf tenderness. Neuro: Cranial nerves 2 to 12 intact grossly. No focal neurological deficit. Speech is normal. St rength is 5/5 in bilateral upper and lower extremities. Sensation intact to light touch. Skin: No rashes. Normal skin turgor. Psych: Mood is anxious. Affect is congruent with mood. Insight and judgment are fair. Laboratory Data: Sodium 137, potassium 3.5, chloride 105, CO2 27, BUN 8, creatinine 1.01, glucose 16 5, calcium 9.1, magnesium 1.8. AST 44, ALT 56, alkaline phosphatase 80. Troponin less than 0.03. T roponin level on 10/07/2017 was also less than 0.03. BNP 19. INR 1.16. WBC 7, H and H 13.7 and 41. 8, platelets 272. Stool cultures pending. Assessment And Plan: A 47-year-old female with; 1.Generalized malaise. We will continue with IV fluids, likely secondary to diarrhea. 2.Morbid obesity, BMI 42.3. 3.Essential hypertension. We will resume hydrochlorothiazide and the patient will need potassium ramirez pplements when she goes home. 4.Borderline diabetes. We will check hemoglobin A1c. The patient does have hyperglycemia. The [facility] currently states she is not on any treatment for her borderline diabetes. 5.Diarrhea. We will check stool studies. The patient at this time states that she is constipated, has not had any further diarrhea. We will advance her diet to a heart healthy diet. 6.Generalized anxiety disorder. The patient is asking something for anxiety. We will start on Busp ar. 7.Major depressive disorder, on SSRI. 8.Obsessive compulsive disorder. 9.Gastrointestinal and deep venous thrombosis prophylaxis with PPI and Lovenox. Plan: Admit to [facility] with observation. /ELAINE Voice ID: [id number]
[2017-10-10 04:51] LABS: Absolute Lymphocytes (CBC) 2.4 K/uL (0.7-4.9); Absolute Monocytes 0.6 K/uL (0.1-1.3); Absolute Neutrophil 3.5 K/uL (1.8-8.0); Basophils % 0.5 % (0-1.3); Eosinophils % 4.1 % (0-4.4); Hematocrit 34.9 % (36.0-45.0); Lymphocytes % 35.4 % (15.3-44.8); MCH 28.8 pg (27.0-35.0); MPV 8.2 fL (7.6-11.3); Monocytes % 8.6 % (3.3-12.3); RBC Red Blood Cell Count 3.97 M/uL (3.86-4.86)
[2017-10-10 05:21] LABS: Potassium 3.8 mEq/L (3.6-5.0)
[2017-10-10] MEDS ORDERED: POTASSIUM CL SA 10 MEQ TAB PO ONE (05:45)
[2017-10-10 08:25] VITALS: BP 117/59; TEMP 97.6
[2017-10-10] MEDS: ENOXAPARIN 40 MG/0.4 ML SQ SCH (08:43)
[2017-10-10] MEDS ORDERED: CITALOPRAM 10 MG TABLET PO SCH (09:00)
[2017-10-10] MEDS ORDERED: HOME MED 1 EA UNK (Citalopram Hydrobromide [Celexa] 20 MG) PO SCH (09:00)
[2017-10-10] MEDS ORDERED: hydroCHLOROthiazide 25 MG TAB PO SCH (09:00)
[2017-10-10] MEDS ORDERED: POTASSIUM CL SA 10 MEQ TAB PO SCH (09:00)
[2017-10-10 10:34] LABS: A1c Component 0.54 mg/dL; Hemoglobin A1c 6.2 % (4-6.0)
[2017-10-10] MEDS ORDERED: LORAZEPAM 0.5 MG TABLET PO ONE (10:43)
[2017-10-10 12:44] VITALS: O2SAT 98
--- NOTE | 2017-10-10 12:54 | P.DS ---
Admission Date: 10/09/17 Discharge Date: 10/10/17 Disposition: ROUTINE DISCHARGE Discharge Condition: GOOD Brief History of Present Illness: Ms Mead came to the hospital complaining of diarrhea, anxiety, stating that she is not receiving benzodiazepines which is the medication that she needs. Hospital Course: Ms Mead the was admitted to the hospital, she was found to be hypokalemic, potassium was replaced by protocol until normal levels. Fecal leukocytes were negative. Diabetes mellitus was suspected but, Hgba1c is in the upper limits. The patient has no PCP. It is imperative to find a family doctor in order to have followed up her chronic problems. At this point she is clinically stable to be discharged home. Vital Signs/Physical Exam: Temp Pulse Resp BP Pulse Ox 97.6 F 65 18 117/59 L 99 10/10/17 08:00 10/10/17 08:42 10/10/17 08:00 10/10/17 08:42 10/10/17 08:00 General: Alert, In no apparent distress HEENT: Atraumatic, PERRLA, EOMI Neck: Supple, JVD not distended Respiratory: Clear to auscultation bilaterally, Normal air movement Cardiovascular: Regular rate/rhythm, Normal S1 S2 Gastrointestinal: Normal bowel sounds, No tenderness Musculoskeletal: No tenderness Integumentary: No rashes Neurological: Normal speech, Normal tone, Normal affect Laboratory Data at Discharge: WBC 6.9 K/uL (4.3-10.9) 10/10/17 04:33 Hgb 11.4 g/dL (12.0-15.0) L 10/10/17 04:33 Hct 34.9 % (36.0-45.0) L D 10/10/17 04:33 Plt Count 213 K/uL (152-406) D 10/10/17 04:33 PT 13.7 SECONDS (9.5-12.5) H 10/09/17 10:05 INR 1.16 10/09/17 10:05 APTT 27.6 SECONDS (24.3-36.9) 10/09/17 10:05 Sodium 141 mEq/L (135-145) 10/10/17 04:33 Potassium 3.8 mEq/L (3.6-5.0) 10/10/17 04:33 BUN 9 mg/dL (6-20) 10/10/17 04:33 Creatinine 0.77 mg/dL (0.44-1.00) 10/10/17 04:33 Glucose 113 mg/dL (65-120) 10/10/17 04:33 Magnesium 2.0 mg/dL (1.8-2.5) 10/10/17 04:33 Total Bilirubin 0.7 mg/dL (0.3-1.2) 10/09/17 10:05 AST 44 IU/L (10-42) H 10/09/17 10:05 ALT 56 IU/L (10-60) 10/09/17 10:05 Alkaline Phosphatase 80 IU/L (42-121) 10/09/17 10:05 B-Natriuretic Peptide 19 pg/ml (<=100) 10/09/17 10:05 Lipase 31 U/L (22-51) 10/09/17 10:05 Home Medications: Citalopram Hydrobromide [Celexa] 20 mg PO DAILY 10/09/17 Hydrochlorothiazide 1 tab PO DAILY 10/09/17 Diet: Regular Activity: Ad nicole Followup: [facility] [Outside] [facility] [Outside] Time spent managing pt's care (in minutes): 40
== END 2017-10-10 13:51 | disposition home or self-care (01) ==
LOC: ER 09:38 → ERHOLD 10:57 → 4TH 11:59
PROVIDERS: ADMIT Family Medicine; ATTEND Family Medicine
DX: E87.6 Hypokalemia (principal); R53.81 Other malaise; R19.7 Diarrhea, unspecified; I10 Essential (primary) hypertension; F42.9 Obsessive-compulsive disorder, unspecified; F33.9 Major depressive disorder, recurrent, unspecified; F17.210 Nicotine dependence, cigarettes, uncomplicated; E66.01 Morbid (severe) obesity due to excess calories; Z68.41 Body mass index [BMI] 40.0-44.9, adult
CPT/HCPCS: 36415; 71045; 80048; 80076; 82550; 82553; 83036; 83690; 83735; 83880; 84484; 85025; 85610; 85730; 87045; 87046; 87086; 87088; 89055; 93005; 94760; 96360; 96372; 99285; G0378; J1650; J7030

== ENCOUNTER 2017-12-30 10:16 | Emergency (ER) | payer BC, SELFPAY ==
--- OUTSIDE RECORDS SUMMARY | 2017-12-30 10:19 | XMS REPORT | Clinical Summary ---
:1970 Author Organization [facility] Address [address] [place] [address] Care Team Providers Name Role Phone Asked, No Pcp Primary Care Provider Unavailable Allergies No Known Allergies Current Medications Prescription Sig. Disp. Refills Start Date End Date Status clonAZEPAM (KlonoPIN) Take 1 tablet 30 tablet 0 10/14/2017 10/29/2017 0.5 MG tablet (0.5 mg total) by mouth 2 (two) times a day for 15 days. ARIPiprazole (ABILIFY) Take 1 tablet 15 tablet 0 10/15/2017 10/30/2017 5 MG tablet (5 mg total) by mouth nightly for 15 days. citalopram (CeleXA) 20 Take 1 tablet 15 tablet 0 10/15/2017 10/30/2017 MG tablet (20 mg total) by mouth nightly for 15 days. metroNIDAZOLE (FLAGYL) Take 1 tablet 42 tablet 0 10/14/2017 10/28/2017 500 MG tablet (500 mg total) by mouth 3 (three) times a day for 14 days. Active Problems Problem Noted Date Severe protein-calorie malnutrition 10/12/2017 Clostridium difficile diarrhea 10/12/2017 C. 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 History of prediabetes 10/11/2017 Class 3 obesity due to excess calories without serious comorbidity with 2017 body mass index (BMI) of 40.0 to 44.9 in adult Left arm weakness 10/11/2017 Encounters Date Type Specialty Care Team Description 10/12/2017 - Hospital Encounter General Internal Joglekar, Beatriz, 10/15/2017 Medicine 10/11/2017 - Hospital Encounter Psychiatry Nellie Bosch, 10/12/2017 Sami Coe, Nadine Schreiber MD Joglekar, Swati, MD after 12/29/2016 Family History Medical History Relation Name Comments Depression Mother Diabetes Mother Stroke Mother Relation Name Status Comments Father (Age 34) Mother Social History Tobacco Use Types Packs/Day Years Used Date Current Every Day Smoker Cigarettes 1 Smokeless Tobacco: Never Used Alcohol Use Drinks/Week oz/Week Comments No Sex Assigned at Date Recorded Not on file Last Filed Vital Signs Vital Sign Reading Time Taken Blood Pressure 112/58 10/15/2017 7:15 AM CDT Pulse 66 10/15/2017 7:15 AM CDT Temperature 36 C (96.8 F) 10/15/2017 7:15 AM CDT Respiratory Rate 18 10/15/2017 7:15 AM CDT Oxygen Saturation 99% 10/15/2017 7:15 AM CDT Inhaled Oxygen Concentration - - Weight 127 kg (280 lb) 10/12/2017 7:11 AM CDT Height 167.6 cm (5' 6") 10/11/2017 6:45 AM CDT Body Mass Index 45.19 10/12/2017 7:11 AM CDT Plan of Treatment Health Maintenance Due Date Last Done Comments CERVICAL CANCER SCREENING 1991 INFLUENZA VACCINE 01/18/2018 Procedures Procedure Name Priority Date/Time Associated Comments Diagnosis ESTIMATED GFR Routine 10/14/2017 6:50 Results for this AM CDT procedure are in the results section. BASIC METABOLIC PANEL Routine 10/14/2017 6:50 Results for this AM CDT procedure are in the results section. HC COMPLETE BLD COUNT Routine 10/14/2017 6:50 Results for this W/AUTO DIFF AM CDT procedure are in the results section. POC GLUCOSE Routine 10/12/2017 11:58 Results for this AM CDT procedure are in the results section. ECG 12-LEAD STAT 10/12/2017 9:33 Results for this AM CDT procedure are in the results section. POC GLUCOSE Routine 10/12/2017 7:08 Results for this AM CDT procedure are in the results section. POC GLUCOSE Routine 10/11/2017 8:33 Results for this PM CDT procedure are in the results section. US ABDOMEN COMPLETE Routine 10/11/2017 5:15 Results for this PM CDT procedure are in the results section. HEMOGLOBIN A1C Routine 10/11/2017 1:40 Results for this PM CDT procedure are in the results section. HC COMPLETE BLD COUNT Routine 10/11/2017 1:40 Results for this W/AUTO DIFF PM CDT procedure are in the results section. HCG QUALITATIVE, URINE Routine 10/11/2017 1:30 Results for this SCREEN PM CDT procedure are in the results section. CLOSTRIDIUM DIFFICILE Routine 10/11/2017 1:30 Results for this TOXIN PM CDT procedure are in the results section. THYROID STIMULATING Routine 10/11/2017 11:55 Results for this HORMONE AM CDT procedure are in the results section. T4, FREE Routine 10/11/2017 11:55 Results for this AM CDT procedure are in the results section. LIPID PANEL Routine 10/11/2017 11:55 Results for this AM CDT procedure are in the results section. ESTIMATED GFR Routine 10/11/2017 11:55 Results for this AM CDT procedure are in the results section. COMPREHENSIVE Routine 10/11/2017 11:55 Results for this METABOLIC PANEL AM CDT procedure are in the results section. HEPATITIS ACUTE PANEL Routine 10/11/2017 11:55 Results for this AM CDT procedure are in the results section. after 12/29/2016 Results Estimated GFR (10/14/2017 6:50 AM)Only the most recent of2 resultswithin the time period is included. GFR Non Af Amer 59 (A) mL/min/1.73 m2 [facility] DEPARTMENT OF PATHOLOGY AND GENOMIC MEDICINE GFR Af Amer 72 mL/min/1.73 m2 [facility] DEPARTMENT OF Comment: PATHOLOGY AND GENOMIC Chronic kidney disease: <60 mL/min/1.73m2 MEDICINE Kidney failure: <15 mL/min/1.73m2 The estimated GFR is calculated from the IDMS-traceable Modification of Diet in Renal Disease Equation. The accuracy of the calculation is poor when the creatinine is normal. Calculated values >90 mL/min/1.73m2 are not reported. This equation has not been validated in children (<18 years), women, the elderly (>70 years), or ethnic groups other than Caucasians and Americans. Specimen Plasma specimen Performing Organization Address City/State/Zipcode Phone Number [facility] DEPARTMENT OF PATHOLOGY AND [address] [place] [address] GENOMIC MEDICINE CBC with platelet and differential (10/14/2017 6:50 AM)Only the most recent of2 resultswithin the time period is included. WBC 4.65 4.50 - 11.00 k/uL [facility] DEPARTMENT OF PATHOLOGY AND GENOMIC MEDICINE RBC 3.98 (L) 4.20 - 5.50 m/uL [facility] DEPARTMENT OF PATHOLOGY AND GENOMIC MEDICINE HGB 11.6 (L) 12.0 - 16.0 g/dL [facility] DEPARTMENT OF PATHOLOGY AND GENOMIC MEDICINE HCT 35.8 (L) 37.0 - 47.0 % [facility] DEPARTMENT OF PATHOLOGY AND GENOMIC MEDICINE MCV 89.9 82.0 - 100.0 fL [facility] DEPARTMENT OF PATHOLOGY AND GENOMIC MEDICINE MCH 29.1 27.0 - 34.0 pg [facility] DEPARTMENT OF PATHOLOGY AND GENOMIC MEDICINE MCHC 32.4 31.0 - 37.0 g/dL [facility] DEPARTMENT OF PATHOLOGY AND GENOMIC MEDICINE RDW - SD 50.9 37.0 - 55.0 fL [facility] DEPARTMENT OF PATHOLOGY AND GENOMIC MEDICINE MPV 9.9 8.8 - 13.2 fL [facility] DEPARTMENT OF PATHOLOGY AND GENOMIC MEDICINE Platelet count 192 150 - 400 k/uL [facility] DEPARTMENT OF PATHOLOGY AND GENOMIC MEDICINE Nucleated RBC 0.00 /100 WBC [facility] DEPARTMENT OF PATHOLOGY AND GENOMIC MEDICINE Neutrophils 55.4 39.0 - 69.0 % [facility] DEPARTMENT OF PATHOLOGY AND GENOMIC MEDICINE Lymphocytes 30.5 25.0 - 45.0 % [facility] DEPARTMENT OF PATHOLOGY AND GENOMIC MEDICINE Monocytes 8.8 0.0 - 10.0 % [facility] DEPARTMENT OF PATHOLOGY AND GENOMIC MEDICINE Eosinophils 4.1 0.0 - 5.0 % [facility] DEPARTMENT OF PATHOLOGY AND GENOMIC MEDICINE Basophils 0.6 0.0 - 1.0 % [facility] DEPARTMENT OF PATHOLOGY AND GENOMIC MEDICINE Immature granulocytes 0.6Comment: 0.0 - 1.0 % [facility] DEPARTMENT OF "Immature PATHOLOGY AND GENOMIC granulocytes" MEDICINE (promyelocytes, myelocytes, metamyelocytes) Specimen Blood Performing Organization Address City/State/Zipcode Phone Number [facility] DEPARTMENT OF PATHOLOGY AND [address] [place] [address] [email or web address] MEDICINE Basic metabolic panel (10/14/2017 6:50 AM) Sodium 142 135 - 148 mEq/L [facility] DEPARTMENT OF PATHOLOGY AND GENOMIC MEDICINE Potassium 3.8 3.5 - 5.0 mEq/L [facility] DEPARTMENT OF PATHOLOGY AND GENOMIC MEDICINE Chloride 105 98 - 112 mEq/L [facility] DEPARTMENT OF PATHOLOGY AND GENOMIC MEDICINE CO2 25 24 - 31 mEq/L [facility] DEPARTMENT OF PATHOLOGY AND GENOMIC MEDICINE Anion gap 12 7 - 15 mEq/L [facility] DEPARTMENT OF PATHOLOGY Comment: AND [facility] Starting from September , anion gap calculation no longer incorporates potassium. Please note the change. BUN 9 6 - 20 mg/dL [facility] DEPARTMENT OF PATHOLOGY AND GENOMIC MEDICINE Creatinine 1.0 (H) 0.5 - 0.9 mg/dL [facility] DEPARTMENT OF PATHOLOGY AND GENOMIC MEDICINE Glucose 127 (H) 65 - 99 mg/dL [facility] DEPARTMENT OF PATHOLOGY AND GENOMIC MEDICINE Calcium 8.4 8.3 - 10.2 mg/dL [facility] DEPARTMENT OF PATHOLOGY AND GENOMIC MEDICINE Specimen Plasma specimen Performing Organization Address City/[facility] Cent[facility] Phone Number [facility] DEPARTMENT OF PATHOLOGY AND [address] [place] [address] POC glucose (10/12/2017 11:58 AM)Only the most recent of3 resultswithin the time period is included. POC glucose 110 (H) 65 - 99 mg/dL [facility] DEPARTMENT OF PATHOLOGY AND Comment: [facility] Notified RN No Action Needed Meter ID: [id number] Trade Recruiter: Femi High Performing Organization Address City/[facility] Centercode Phone Number [facility] DEPARTMENT OF PATHOLOGY AND [address] [place], [place] [phone] [facility] ECG 12 lead (10/12/2017 9:33 AM) Ventricular rate 69 HM MUSE Atrial rate 69 [facility] MUSE SC interval 158 HM MUSE QRSD interval 106 HM MUSE QT interval 410 [facility] MUSE QTC interval 439 [facility] MUSE P axis 1 63 HM MUSE QRS axis 1 -6 [facility] MUSE T wave axis 81 [facility] MUSE EKG impression Normal sinus rhythm-Cannot rule out Anterior [facility] MUSE infarct , age undetermined-Abnormal ECG-In automated comparison with ECG of 29-MAR-2016 11:55,-No significant change was found- Performing Organization Address City/[facility] Centercode Phone Number [address] [address] US Abdomen Complete (10/11/2017 5:15 PM) Narrative Performed At EXAM: ultrasound abdomen [facility] CLINICAL DATA:ABDOMINAL PAIN, chronic diarrhea for 4 weeksweight loss 15 poundsslightly elevated ALT and lipase COMPARISON: NONE. FINDINGS: LIVER:The liver density is homogeneous. MPV:Doppler evaluation of the portal vein demonstrates normal hepatopedal flow. Measures 1.3 cm in diameter GALLBLADDER:The gallbladder is without evidence of calculi. The gallbladder wall is not thickened and there is no pericholecystic fluid. CBD:Measures 3.8 mm in diameter. , within normal limits. PANCREAS:The visualized portions of the pancreas are within normal limits. The spleen measures 14.5 x 4.8 x 5.7 cm The right kidney measures 10.7 x 4.7 x 5.1 cm The left kidney measures 1.0 x 4.9 x 5.2 cm Kidney cortex thickness is 1.2 cm. There are no kidney masses. There are no renal calculi. Kidney cortex echotexture is normal. AORTA:The visualized upper abdominal aorta demonstrates no evidence of ectasia or aneurysm. IVC:The visualized portions of the inferior vena cava are unremarkable. ASCITES: No abnormal abdominal fluid collections are visualized. There is no evidence of ascites. IMPRESSION: Unremarkable abdomen ultrasound. [facility]-[id number] Procedure Note Interface, Radiology Results [facility] - 10/11/2017 5:28 PM CDT EXAM: ultrasound abdomen CLINICAL DATA: ABDOMINAL PAIN, chronic diarrhea for 4 weeks weight loss 15 pounds slightly elevated ALT and lipase COMPARISON: NONE. FINDINGS: LIVER: The liver density is homogeneous. MPV: Doppler evaluation of the portal vein demonstrates normal hepatopedal flow. Measures 1.3 cm in diameter GALLBLADDER: The gallbladder is without evidence of calculi. The gallbladder wall is not thickened and there is no pericholecystic fluid. CBD: Measures 3.8 mm in diameter. , within normal limits. PANCREAS: The visualized portions of the pancreas are within normal limits. The spleen measures 14.5 x 4.8 x 5.7 cm The right kidney measures 10.7 x 4.7 x 5.1 cm The left kidney measures 1.0 x 4.9 x 5.2 cm Kidney cortex thickness is 1.2 cm. There are no kidney masses. There are no renal calculi. Kidney cortex echotexture is normal. AORTA: The visualized upper abdominal aorta demonstrates no evidence of ectasia or aneurysm. IVC: The visualized portions of the inferior vena cava are unremarkable. ASCITES: No abnormal abdominal fluid collections are visualized. There is no evidence of ascites. IMPRESSION: Unremarkable abdomen ultrasound. [facility]-[id number] Performing Organization Address City/[facility]/Zipcode Phone Number [facility] [address] [place] [phone] Hemoglobin A1c (10/11/2017 1:40 PM) Hemoglobin A1C 6.2 (H) 4.0 - 5.6 % [facility] DEPARTMENT OF PATHOLOGY Comment: AND [facility] HbA1c cutoffs for diagnosing diabetes: 4.0% - 5.6%=normal 5.7% - 6.4%=increased risk for diabetes (prediabetes) >=6.5%=diabetes Goals for glycemic control (ADA 2016) < 7.0%Target for non adults with diabetes. More or less stringent targets may be appropriate for individual patients. <7.5% Target for Children and adolescents with type 1 diabetes. Narrative Performed At added TSH/T4FRE per Emmanuelle Mcclure RN [facility] DEPARTMENT OF PATHOLOGY AND GENOMIC 10/11/2017 14:04 by [facility] MEDICINE Performing Organization Address [facility] Centercode Phone Number [facility] DEPARTMENT OF PATHOLOGY AND [address] [place] [address] hCG qualitative, urine screen (10/11/2017 1:30 PM) hCG qualitative, urine NegativeComment: [facility] DEPARTMENT OF Sensitivity of HCG test: 25 PATHOLOGY AND GENOMIC mIU/mL MEDICINE Specimen Urine Performing Organization Address City/[facility] Centercode Phone Number [facility] DEPARTMENT OF PATHOLOGY AND [address] [place], [place] [phone] [facility] C difficile toxin (10/11/2017 1:30 PM) Clostridium difficile Positive for C. difficile toxin (A) [facility] DEPARTMENT OF toxin Comment: PATHOLOGY AND GENOMIC Specimen Information MEDICINE Specimen Source: Stool Specimen Site: Nonpreserved Specimen Stool - Nonpreserved Performing Organization Address [facility] Centercode Phone Number [facility] DEPARTMENT OF PATHOLOGY AND [address] [place] [address] Hepatitis acute panel (10/11/2017 11:55 AM) Hepatitis A IgM Non-reactive Non-reactive [facility] DEPARTMENT OF PATHOLOGY AND GENOMIC MEDICINE Hepatitis B core IgM Non-reactive Non-reactive [facility] DEPARTMENT OF PATHOLOGY AND GENOMIC MEDICINE Hepatitis B surface Ag Non-reactive Non-reactive [facility] DEPARTMENT OF PATHOLOGY AND GENOMIC MEDICINE Hepatitis C Ab Non-reactive Non-reactive [facility] DEPARTMENT OF PATHOLOGY AND GENOMIC MEDICINE Specimen Serum Narrative Performed At added TSH/T4FRE per Emmanuelle Mcclure RN [facility] DEPARTMENT OF PATHOLOGY AND GENOMIC 10/11/2017 14:04 by [facility] Performing Organization Address City/[facility] Centercode Phone Number [facility] DEPARTMENT OF PATHOLOGY AND [address] [place] [address] Thyroid stimulating hormone (10/11/2017 11:55 AM) TSH 2.20 0.27 - 4.20 uIU/mL [facility] DEPARTMENT OF PATHOLOGY AND GENOMIC MEDICINE Specimen Plasma specimen Narrative Performed At added TSH/T4FRE per Emmanuelle Mcclure RN [facility] DEPARTMENT OF PATHOLOGY AND GENOMIC 10/11/2017 14:04 by [facility] Performing Organization Address City/[facility] Centercode Phone Number [facility] DEPARTMENT OF PATHOLOGY [address] T4, free (10/11/2017 11:55 AM) T4, free 1.3 0.9 - 1.7 ng/dL [facility] DEPARTMENT OF PATHOLOGY AND GENOMIC MEDICINE Specimen Plasma specimen Narrative Performed At added TSH/T4FRE per Emmanuelle Mcclure RN [facility] DEPARTMENT OF PATHOLOGY AND GENOMIC 10/11/2017 14:04 by [facility] Performing Organization Address [facility] Centercova Phone Number [facility] DEPARTMENT OF PATHOLOGY AND [address] [place] [address] Lipid panel (10/11/2017 11:55 AM) Cholesterol 187 <200 mg/dL [facility] DEPARTMENT OF PATHOLOGY AND GENOMIC MEDICINE Triglycerides 193 (H) <150 mg/dL [facility] DEPARTMENT OF PATHOLOGY AND GENOMIC MEDICINE HDL cholesterol 33 (L) >40 mg/dL [facility] DEPARTMENT OF PATHOLOGY AND GENOMIC MEDICINE LDL cholesterol 130 (H)Comment: Result <100 mg/dL [facility] DEPARTMENT OF obtained by direct LDL PATHOLOGY AND GENOMIC measurement MEDICINE Lipid panel interpretation SeeBelow [facility] DEPARTMENT OF Comment: PATHOLOGY AND GENOMIC Total Cholesterol (mg/dL) MEDICINE <200 Desirable [phone] >=240High Triglycerides (mg/dL) <150 Normal [id number] 200-499High >=500Very high HDL Cholesterol (mg/dL) <40Low (male) <40Low (female) LDL Cholesterol (mg/dL) <100 Optimal 100-129Near or above optimal [phone] 160-189High >=190Very high Risk Catergories that modify LDL goals. Risk CatergoriesLDL goal (mg/dL) CHD and CHD risk equivalent<100 (10-year risk >20%) Multiple (2+) risk factors <130 (10-year risk=<20%) 0-1 risk factors <160 (<10-year risk) Defining levels of lipids in metabolic syndrome Triglycerides>=150 mg/dL HDL Cholesterol Men<40 mg/dL Women<40 mg/dL Non-HDL cholesterol is a second target for therapy in persons with high triglycerides (>=200 mg/dL) Specimen Plasma specimen Narrative Performed At added TSH/T4FRE per Emmanuelle Mcclure RN [facility] DEPARTMENT OF PATHOLOGY AND GENOMIC 10/11/2017 14:04 by [facility] MEDICINE Performing Organization Address City/State/[facility]ercode Phone Number [facility] DEPARTMENT OF PATHOLOGY AND [address] [place] [phone] [email or web address] MEDICINE Comprehensive metabolic panel (10/11/2017 11:55 AM) Sodium 140 135 - 148 mEq/L [facility] DEPARTMENT OF PATHOLOGY AND GENOMIC MEDICINE Potassium 4.0 3.5 - 5.0 mEq/L [facility] DEPARTMENT OF PATHOLOGY AND GENOMIC MEDICINE Chloride 102 98 - 112 mEq/L [facility] DEPARTMENT OF PATHOLOGY AND GENOMIC MEDICINE CO2 22 (L) 24 - 31 mEq/L [facility] DEPARTMENT OF PATHOLOGY AND GENOMIC MEDICINE Anion gap 16 (H) 7 - 15 mEq/L [facility] DEPARTMENT OF Comment: PATHOLOGY AND GENOMIC Starting from September , anion gap calculation MEDICINE no longer incorporates potassium. Please note the change. BUN 6 6 - 20 mg/dL [facility] DEPARTMENT OF PATHOLOGY AND GENOMIC MEDICINE Creatinine 0.8 0.5 - 0.9 mg/dL [facility] DEPARTMENT OF PATHOLOGY AND GENOMIC MEDICINE Glucose 115 (H) 65 - 99 mg/dL [facility] DEPARTMENT OF PATHOLOGY AND GENOMIC MEDICINE Calcium 9.1 8.3 - 10.2 mg/dL [facility] DEPARTMENT OF PATHOLOGY AND GENOMIC MEDICINE Protein 7.5 6.3 - 8.3 g/dL [facility] DEPARTMENT OF Comment: PATHOLOGY AND GENOMIC 4.6-7.0 g/dL MEDICINE 1 week 4.4-7.6 g/dL 7 months-1year5.1-7.3 g/dL 1-2 years5.6-7.5 g/dL >3 years6.0-8.0 g/dL 18-150 6.3-8.3 g/dL Albumin 3.7 3.5 - 5.0 g/dL [facility] DEPARTMENT OF PATHOLOGY AND GENOMIC MEDICINE A/G ratio 1.0 0.7 - 3.8 [facility] DEPARTMENT OF PATHOLOGY AND GENOMIC MEDICINE Alkaline phosphatase 75 35 - 104 U/L [facility] DEPARTMENT OF PATHOLOGY AND GENOMIC MEDICINE AST 41 (H) 10 - 35 U/L [facility] DEPARTMENT OF PATHOLOGY AND GENOMIC MEDICINE ALT 55 (H) 5 - 50 U/L [facility] DEPARTMENT OF PATHOLOGY AND GENOMIC MEDICINE Total bilirubin 0.7 0.0 - 1.2 mg/dL [facility] DEPARTMENT OF PATHOLOGY AND GENOMIC MEDICINE Specimen Plasma specimen Narrative Performed At added TSH/T4FRE per Emmanuelle Mcclure RN [facility] DEPARTMENT OF PATHOLOGY AND GENOMIC 10/11/2017 14:04 by [facility] MEDICINE Performing Organization Address City/State/Zipcode Phone Number [facility] DEPARTMENT OF PATHOLOGY AND [address] [place] [address] [facility] after 12/29/2016
[2017-12-30] MEDS ORDERED: LORazepam 2 MG/ML VIAL ONE (11:10)
[2017-12-30] MEDS ORDERED: MORPHINE 4 MG/ML SYR ONE (11:10)
[2017-12-30 11:11] LABS: Absolute Lymphocytes (CBC) 1.8 K/uL (0.7-4.9); Absolute Monocytes 0.4 K/uL (0.1-1.3); Absolute Neutrophil 5.6 K/uL (1.8-8.0); Basophils % 0.5 % (0-1.3); Eosinophils % 3.6 % (0-4.4); Hematocrit 41.3 % (36.0-45.0); Lymphocytes % 22.3 % (15.3-44.8); MCV 85.8 fL (80-100); MPV 8.4 fL (7.6-11.3); Monocytes % 5.4 % (3.3-12.3); RBC Red Blood Cell Count 4.81 M/uL (3.86-4.86)
[2017-12-30] MEDS ORDERED: NA CHLORIDE 0.9% 1,000 ML ONE (11:11)
[2017-12-30] MEDS ORDERED: ONDANSETRON 4 MG/2 ML VIAL ONE (11:11)
[2017-12-30] MEDS ORDERED: NITROGLYCERIN 0.4 MG/TAB SL ONE ×2 (11:11→11:12)
[2017-12-30 11:16] LABS: Protime INR 1.18
[2017-12-30 11:34] LABS: ALT/SGPT 69 U/L (12-78); AST/SGOT 38 U/L (15-37); Albumin 3.9 g/dL (3.4-5.0); Alkaline Phosphatase 96 U/L (45-117); BUN Blood Urea Nitrogen 12 mg/dL (7-18); Bicarbonate 31 mmol/L (21-32); Bilirubin Direct 0.2 mg/dL (0-0.2); Bilirubin Total 0.8 mg/dL (0.2-1.0); CKMB Creatine Kinase MB < 1.0 ng/mL (0.3-3.6); Creatine Phosphokinase 89 U/L (26-192); Glucose Level 170 mg/dL (74-106); Magnesium 2.1 mg/dL (1.8-2.4); NT PRO-BNP 12 pg/mL (<125); Potassium 3.1 mmol/L (3.5-5.1); Protein, Total 8.4 g/dL (6.4-8.2); Sodium Level 140 mmol/L (136-145)
--- NOTE | 2017-12-30 11:55 | RAD REPORT ---
EXAM DESCRIPTION: RAD - Chest Single View - 12/30/2017 11:50 am CLINICAL HISTORY: CHEST PAIN Chest pain. COMPARISON: Chest Single View dated 10/09/2017; Chest Single View dated 10/07/2017; Chest Pa And Lat ( 2 Views) dated 04/18/2017 FINDINGS: Portable technique limits examination quality. The lungs are grossly clear. The heart is normal in size. No displaced fractures. IMPRESSION: No acute intrathoracic process suspected.
--- NOTE | 2017-12-30 11:56 | RAD REPORT ---
EXAM DESCRIPTION: RAD - Abdomen Single View - 12/30/2017 11:51 am CLINICAL HISTORY: PAIN Pain COMPARISON: No comparisons FINDINGS: The bowel gas pattern is non-obstructive. No evidence of free air or pneumatosis. No suspi cious calcifications. No significant bony findings. IMPRESSION: Negative examination.
--- NOTE | 2017-12-30 12:31 | EDPHYS ---
Physician Documentation [facility] Name: Kyra Mead Age: 47 yrs Sex: Female : 1970 Arrival Date: 12/30/2017 Time: 10:20 Bed 19 Private MD: Gaston Dye E ED Physician Matthew Ngo HPI: 12/30 10:48 This 47 yrs old Female presents to ER via Ambulatory with complaints of Chest kav Pain, Diarrhea. 11:47 The patient or guardian reports chest pain that is located primarily in the anterior kav aspect of left upper chest and left breast. Onset: acutely, 3 year(s) ago, and became worse just prior to arrival, this morning. The patient presents to the emergency department with diarrhea, that is intermittent, 2 times today. Onset: The symptoms/episode began/occurred 3 day(s) ago. Possible causes: unknown, PMHX: CDiff. The symptoms are aggravated by nothing. The symptoms are alleviated by nothing. The pain does not radiate. Associated signs and symptoms: Pertinent positives: diarrhea, nausea, Pertinent negatives: abdominal pain, belching, constipation, dysuria, fever, flatulence, GI bleeding, hematuria, vaginal discharge, vomiting. Associated signs and symptoms: Pertinent positives:. 11:49 The chest pain is described as dull. Duration: The patient or guardian reports multiple kav episodes, that are intermittent, that wax and wane, the episodes last approximately 5 second(s). Modifying factors: The symptoms are alleviated by nothing. the symptoms are aggravated by activity. Severity of pain: At its worst the pain was mild just prior to arrival, in the emergency department the pain is unchanged. Severity of symptoms: At their worst the symptoms were mild just prior to arrival. The patient has experienced similar episodes in the past, chronically, but today's symptoms are worse, and the symptoms today are exactly the same. The patient has not recently seen a physician. reports being seen by a webbing inspector approximately 3 years ago but "...can't remember why she saw him and can't remember diagnosis". patient is crying during examination and reports "...I have anxiety but am not currently being treated for anxiety". PMHX: Depression. 11:52 GEOVANY Cardiac Risk Score: O. 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 - Social history:: Smoking status: Patient/guardian denies using tobacco. - Ebola Screening: : Patient negative for fever greater than or equal to 101.5 degrees Fahrenheit, and additional compatible Ebola Virus Disease symptoms Patient denies exposure to infectious person Patient denies travel to an Ebola-affected area in the 21 days before illness onset No symptoms or risks identified at this time. - Family history:: not pertinent. - Hospitalizations: : No recent hospitalization is reported. ROS: 11:52 Constitutional: Negative for fever, chills, and weight loss, Eyes: Negative for injury, kav pain, redness, and discharge, ENT: Negative for injury, pain, and discharge, Neck: Negative for injury, pain, and swelling, Respiratory: Negative for shortness of breath, cough, wheezing, and pleuritic chest pain, Back: Negative for injury and pain, : Negative for injury, bleeding, discharge, and swelling, MS/Extremity: Negative for injury and deformity, Skin: Negative for injury, rash, and discoloration, Neuro: Negative for headache, weakness, numbness, tingling, and seizure, Allergy/Immunology: Negative for hives, rash, and allergies, Endocrine: Negative for neck swelling, polydipsia, polyuria, polyphagia, and marked weight changes, Hematologic/Lymphatic: Negative for swollen nodes, abnormal bleeding, and unusual bruising. 11:52 Cardiovascular: Positive for chest pain, of the chest and left breast and anterior aspect of left upper chest. 11:52 Abdomen/GI: Positive for abdominal pain, nausea, Negative for vomiting, constipation, abdominal cramps, abdominal distension, hematemesis, black/tarry stool, rectal bleeding, bowel incontinence, flatulence. 11:52 Neuro: 11:52 Psych: Positive for anxiety, depression. Exam: 11:52 Constitutional: This is a well developed, well nourished patient who is awake, alert, kav and in no acute distress. Head/Face: Normocephalic, atraumatic. Eyes: Pupils equal round and reactive to light, extra-ocular motions intact. Lids and lashes normal. Conjunctiva and sclera are non-icteric and not injected. Cornea within normal limits. Periorbital areas with no swelling, redness, or edema. ENT: Nares patent. No nasal discharge, no septal abnormalities noted. Tympanic membranes are normal and external auditory canals are clear. Oropharynx with no redness, swelling, or masses, exudates, or evidence of obstruction, uvula midline. Mucous membranes moist. Neck: Trachea midline, no thyromegaly or masses palpated, and no cervical lymphadenopathy. Supple, full range of motion without nuchal rigidity, or vertebral point tenderness. No Meningismus. Chest/axilla: Normal chest wall appearance and motion. Nontender with no deformity. No lesions are appreciated. Respiratory: Lungs have equal breath sounds bilaterally, clear to auscultation and percussion. No rales, rhonchi or wheezes noted. No increased work of breathing, no retractions or nasal flaring. Back: No spinal tenderness. No costovertebral tenderness. Full range of motion. Skin: Warm, dry with normal turgor. Normal color with no rashes, no lesions, and no evidence of cellulitis. MS/ Extremity: Pulses equal, no cyanosis. Neurovascular intact. Full, normal range of motion. Neuro: Awake and alert, GCS 15, oriented to person, place, time, and situation. Cranial nerves II-XII grossly intact. Motor strength 5/5 in all extremities. Sensory grossly intact. Cerebellar exam normal. Normal gait. 11:52 Cardiovascular: Rate: normal, Rhythm: regular, Pulses: pulse deficits are appreciated, Pulses are 2+ in right radial artery, right posterior tibial artery, left radial artery, left posterior tibial artery, left carotid pulse and right carotid pulse. Heart sounds: normal, normal S1and S2. 11:52 ECG was reviewed by the Attending Physician. NSR \\T\\ 91 bpm Vital Signs: 10:23 Pulse 85; Resp 17; Temp 97.9; Pulse Ox 98% on R/A; Weight 113.4 kg (R); Height 5 ft. 6 sg in. (167.64 cm); Pain 5/10; 10:25 BP 106 / 85; sg 11:23 BP 118 / 83; Pulse 72; Resp 18; Pulse Ox 96% on R/A; dh3 12:05 BP 111 / 69; Pulse 63; Resp 18; Pulse Ox 97% on R/A; dh3 13:09 BP 103 / 66; Pulse 57; Resp 16; Pulse Ox 98% on R/A; Pain 2/10; em 10:23 Body Mass Index 40.35 (113.40 kg, 167.64 cm) sg MDM: 10:48 Medical screening is not applicable. kav 11:44 ED course: per nursing staff - patient refused nitro, zofran and morphine and reports kav that she is no longer having chest pain. also, she is "...unable to give us a stool sample of her diarrhea and c/o previous history of c-diff. 12:01 HEART Score: History: Slightly Suspicious (0), ECG: Normal (0), Age: > 45 and < 65 kav years (1), Risk Factors: No Risk Factors Known (0), Troponin: < or = 1 x Normal Limit (0), Total Score =. 12:01 Data reviewed: vital signs, nurses notes, lab test result(s), EKG, radiologic studies. 12/30 10:56 Order name: Basic Metabolic Panel 12/30 10:56 Order name: CBC with Diff; Complete Time: 12:01 12/30 10:56 Order name: Ckmb; Complete Time: 12:01 12/30 10:56 Order name: CPK; Complete Time: 12:01 12/30 10:56 Order name: LFT's; Complete Time: 12:01 12/30 10:56 Order name: Magnesium; Complete Time: 12:01 12/30 10:56 Order name: NT PRO-BNP; Complete Time: 12:01 12/30 10:56 Order name: PT-INR; Complete Time: 12:01 12/30 10:56 Order name: Ptt, Activated; Complete Time: 12:01 12/30 10:56 Order name: Troponin (emerg Dept Use Only); Complete Time: 12:01 12/30 10:56 Order name: XRAY Chest (1 view); Complete Time: 12:01 12/30 10:56 Order name: Basic Metabolic Panel; Complete Time: 12:01 EDMS 12/30 11:24 Order name: Abdomen 1 View XRAY; Complete Time: 12:01 em 12/30 10:56 Order name: EKG; Complete Time: 10:57 12/30 10:56 Order name: Cardiac monitoring; Complete Time: 12:21 12/30 10:56 Order name: EKG - Nurse/Tech; Complete Time: 12:12/30 10:56 Order name: IV Saline Lock; Complete Time: 12:12/30 10:56 Order name: Labs collected and sent; Complete Time: 12:12/30 10:56 Order name: O2 Per Protocol; Complete Time: 12:12/30 10:56 Order name: O2 Sat Monitoring; Complete Time: 12:22 ka Administered Medications: 11:24 Drug: NS 0.9% 1000 ml Route: IV; Rate: 1 bolus; Site: right antecubital; em 13:08 Follow up: IV Status: Completed infusion; IV Intake: 1000ml em 11:30 Drug: Zofran 4 mg Route: IVP; Site: right antecubital; sg 12:22 Follow up: Response: No adverse reaction em 12:05 Drug: Ativan 0.5 mg Route: IVP; Site: right antecubital; sg 12:23 Follow up: Response: No adverse reaction; Pain is decreased; Anxiety decreased em 12:09 Not Given (Patient Refused): Nitroglycerin 0.4 mg Sublingual once x1 em 12:10 Not Given (Patient Refused): morphine 4 mg IVP once em 12:44 Drug: Potassium Chloride 40 mEq Route: PO; em 13:08 Follow up: Response: No adverse reaction em Disposition: 17:28 Co-signature as Attending Physician, Matthew Ngo MD I agree with the assessment and kdr plan of care. Disposition: 12/30/17 12:30 Discharged to Home. Impression: Chest pain, unspecified, Anxiety disorder, unspecified, Diarrhea, unspecified. - Condition is Stable. - Discharge Instructions: Food Choices to Help Relieve Diarrhea, Adult, Nonspecific Chest Pain, Diarrhea, [id number], Generalized Anxiety Disorder. - Prescriptions for Ibuprofen 800 mg Oral Tablet - take 1 tablet by ORAL route every 8 hours As needed take with food; 30 tablet. Ativan 0.5 mg Oral Tablet - take 1 tablet by ORAL route every 8 hours As needed; 10 tablet. - Medication Reconciliation Form, Thank You Letter form. - Follow up: Tanmay Prakash MD; When: 2 - 3 days; Reason: Recheck today's complaints, Continuance of care, Re-evaluation by your physician. - Problem is chronic. - Symptoms have improved. Signatures: Dispatcher [employer] EDArnold Franklin, ANIA RN sg Matthew Ngo MD MD kdr Branden, Mel, MANAGER PRESENTATION MANAGER PRESENTATION kav Claude Stanley, VOCAL MUSIC INSTRUCTOR VOCAL MUSIC INSTRUCTOR em Corrections: (The following items were deleted from the chart) 12:32 12:30 12/30/2017 12:30 Discharged to Home. Impression: Chest pain, unspecified; Anxiety kav disorder, unspecified. Condition is Stable. Forms are Medication Reconciliation Form, Thank You Letter, Antibiotic Education, Prescription Opioid Use. Follow up: Tanmay Prakash; When: 2 - 3 days; Reason: Recheck today's complaints, Continuance of care, Re-evaluation by your physician. Problem is chronic. Symptoms have improved. kav 13:13 12:32 12/30/2017 12:30 Discharged to Home. Impression: Chest pain, unspecified; Anxiety em disorder, unspecified; Diarrhea, unspecified. Condition is Stable. Discharge Instructions: Nonspecific Chest Pain, Generalized Anxiety Disorder. Prescriptions for Ibuprofen 800 mg Oral Tablet - take 1 tablet by ORAL route every 8 hours As needed take with food; 30 tablet. and Forms are Medication Reconciliation Form, Thank You Letter. Follow up: Tanmay Prakash; When: 2 - 3 days; Reason: Recheck today's complaints, Continuance of care, Re-evaluation by your physician. Problem is chronic. Symptoms have improved. kav
--- NOTE | 2017-12-30 12:31 | ER ---
Nurse's Notes [facility] Name: Kyra Mead Age: 47 yrs Sex: Female : 1970 Arrival Date: 12/30/2017 Time: 10:20 Bed 19 Private MD: Gaston Dye E Diagnosis: Chest pain, unspecified;Anxiety disorder, unspecified;Diarrhea, unspecified Presentation: 12/30 10:20 Presenting complaint: Patient states: Chest pain, intermittent, reports not having a BM sg for several days and then this morning had a BM that was small and diarrhea, pt reports having had an issue like this before and dx with low potassium and was admitted, then dc home, went to [facility] for treatment and diagnosed with CDIFF, at the end of September, my stomach just hasnt been the same since all that. Transition of care: patient was not received from another setting of care. Onset of symptoms was December 30, 2017. Risk Assessment: Do you want to hurt yourself or someone else? Patient reports no desire to harm self or others. Initial Sepsis Screen:. Care prior to arrival: None. 10:20 Method Of Arrival: Ambulatory sg 10:20 Acuity: CASSY 3 sg 11:36 Initial Sepsis Screen: Does the patient meet any 2 criteria? No. Patient's initial em sepsis screen is negative. Does the patient have a suspected source of infection? No. Patient's initial sepsis screen is negative. 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 - Social history:: Smoking status: Patient/guardian denies using tobacco. - Ebola Screening: : Patient negative for fever greater than or equal to 101.5 degrees Fahrenheit, and additional compatible Ebola Virus Disease symptoms Patient denies exposure to infectious person Patient denies travel to an Ebola-affected area in the 21 days before illness onset No symptoms or risks identified at this time. - Family history:: not pertinent. - Hospitalizations: : No recent hospitalization is reported. Screenin:35 Abuse screen: Denies threats or abuse. Nutritional screening: No deficits noted. em Tuberculosis screening: No symptoms or risk factors identified. Fall Risk None identified. Assessment: 11:17 General: Appears in no apparent distress. uncomfortable, Behavior is calm, cooperative. em Pain: Pain radiates to left upper quadrant Pain currently is 3 out of 10 on a pain scale. Pain began Tuesday. Neuro: Level of Consciousness is awake, alert, obeys commands, Oriented to person, place, time, situation. Cardiovascular: Reports nausea, Denies chest pain, vomiting, Capillary refill < 3 seconds Patient's skin is warm and dry. Rhythm is sinus rhythm. Respiratory: Airway is patent Respiratory effort is even, unlabored, Respiratory pattern is regular, symmetrical. GI: Abdomen is round non-distended, Reports diarrhea, nausea, Patient currently denies vomiting. : No signs and/or symptoms were reported regarding the genitourinary system. Derm: Skin is intact, Skin is pink, warm \\T\\ dry. Musculoskeletal: Range of motion: limited in right shoulder reports, "paralysis from virus". 11:17 Reassessment: I agree with assessment completed by LUCILA Arce . aa5 11:28 Reassessment: currently denies chest pain, reports left upper quad pain, pt refuses em nitro, morphine, and Ativan reports pain at 3/10 that "comes and goes". 12:00 Reassessment: Patient appears in no apparent distress at this time. Patient and/or em family updated on plan of care and expected duration. Pain level reassessed. Patient is alert, oriented x 3, equal unlabored respirations, skin warm/dry/pink. rates pain 2/10 in abd, denies chest pain, request something anxiety, given medications per MAR Patient states feeling better. 13:08 Reassessment: Patient appears in no apparent distress at this time. unable to give em urine and stool specimen. Vital Signs: 10:23 Pulse 85; Resp 17; Temp 97.9; Pulse Ox 98% on R/A; Weight 113.4 kg (R); Height 5 ft. 6 sg in. (167.64 cm); Pain 5/10; 10:25 BP 106 / 85; sg 11:23 BP 118 / 83; Pulse 72; Resp 18; Pulse Ox 96% on R/A; dh3 12:05 BP 111 / 69; Pulse 63; Resp 18; Pulse Ox 97% on R/A; dh3 13:09 BP 103 / 66; Pulse 57; Resp 16; Pulse Ox 98% on R/A; Pain 2/10; em 10:23 Body Mass Index 40.35 (113.40 kg, 167.64 cm) sg ED Course: 10:20 Patient arrived in ED. sb2 10:20 Gaston Dye MD is Private Physician. sb2 10:22 Triage completed. sg 10:23 Arm band placed on. sg 10:40 Claude Stanley LVN is Primary Nurse. em 10:46 EKG done, by distribution field technician. reviewed by Matthew Ngo MD. at1 10:48 Mel Otero, LAUNDRY ROOM ATTENDANT [facility] kav 10:48 Matthew Ngo MD is Attending Physician. kav 10:54 Inserted saline lock: 20 gauge in right antecubital area, using aseptic technique. dh3 Blood collected. 11:35 Patient has correct armband on for positive identification. Call light in reach. em 11:35 No provider procedures requiring assistance completed. em 11:50 XRAY Chest (1 view) In Process Unspecified. EDMS 11:50 Abdomen 1 View XRAY In Process Unspecified. EDMS 12:28 Tanmay Prakash MD is Referral Physician. kav 13:10 IV discontinued, intact, bleeding controlled, No redness/swelling at site. Pressure em dressing applied. Administered Medications: 11:24 Drug: NS 0.9% 1000 ml Route: IV; Rate: 1 bolus; Site: right antecubital; em 13:08 Follow up: IV Status: Completed infusion; IV Intake: 1000ml em 11:30 Drug: Zofran 4 mg Route: IVP; Site: right antecubital; sg 12:22 Follow up: Response: No adverse reaction em 12:05 Drug: Ativan 0.5 mg Route: IVP; Site: right antecubital; sg 12:23 Follow up: Response: No adverse reaction; Pain is decreased; Anxiety decreased em 12:09 Not Given (Patient Refused): Nitroglycerin 0.4 mg Sublingual once x1 em 12:10 Not Given (Patient Refused): morphine 4 mg IVP once em 12:44 Drug: Potassium Chloride 40 mEq Route: PO; em 13:08 Follow up: Response: No adverse reaction em Intake: 13:08 IV: 1000ml; Total: 1000ml. em Outcome: 12:30 Discharge ordered by MD. healy 13:10 Discharged to home ambulatory. em 13:10 Condition: good 13:10 Discharge instructions given to patient, Instructed on discharge instructions, follow up and referral plans. no drinking with medication, no driving heavy equipment, medication usage, Demonstrated understanding of instructions, follow-up care, medications, Prescriptions given X 2. 13:13 Patient left the ED. em Signatures: Dispatcher [employer] EDArnold Franklin, RN RN sg Mel Otero, LAUNDRY ROOM ATTENDANT LAUNDRY ROOM ATTENDANT Claude Nelson, DIGITAL COMMUNICATIONS MANAGER DIGITAL COMMUNICATIONS MANAGER em Karrie Banks RN RN aa5 Laura sandoval, rn transport EKG Tat1 Joanna Quarles 3 Leanna Ramos2 Corrections: (The following items were deleted from the chart) 13:12 12:00 Reassessment: Patient appears in no apparent distress at this time. Patient em and/or family updated on plan of care and expected duration. Pain level reassessed. Patient is alert, oriented x 3, equal unlabored respirations, skin warm/dry/pink. rates pain 2/10 in abd, denies chest pain Patient states feeling better. em
[2017-12-30] MEDS ORDERED: POTASSIUM CL SA 10 MEQ TAB PO ONE (12:36)
[2017-12-30 13:18] VITALS: TEMP 97.9
[2017-12-30 13:31] VITALS: BP 103/66; O2SAT 98
--- NOTE | 2017-12-31 10:30 | EKG ---
Test Date: 2017-12-30 Test Time: 10:30:58 Plate Shop Helper: KEZIA MEASUREMENT RESULTS: Intervals: Rate: 91 VT: 152 QRSD: 96 QT: 408 QTc: 501 [place]: P: 44 VT: 152 QRS: -21 T: 50 INTERPRETIVE STATEMENTS: Normal sinus rhythm Minimal voltage criteria for LVH, may be normal variant Cannot rule out Anterior infarct, age undetermined Abnormal ECG Compared to ECG 10/09/2017 10:02:22 Left ventricular hypertrophy now present Myocardial infarct finding now present T-wave abnormality no longer present Electronically Signed On 12-31-17 10:27:29 CDT by Tanmay Prakash
== END 2017-12-30 13:13 | disposition home or self-care (01) ==
LOC: ER 10:16
DX: F41.9 Anxiety disorder, unspecified (principal); R19.7 Diarrhea, unspecified; I10 Essential (primary) hypertension
CPT/HCPCS: 36415; 71045; 74018; 80048; 80076; 82550; 82553; 83735; 83880; 84484; 85025; 85610; 85730; 93005; 96361; 96374; 96375; 99284; J2405; J7030

== ENCOUNTER 2018-01-16 17:50 | Emergency (ER) | payer BC ==
--- OUTSIDE RECORDS SUMMARY | 2018-01-16 17:53 | XMS REPORT | Clinical Summary ---
:1970 Author Organization [employer] Address [address] [place] [address] Care Team Providers Name Role Phone Asked, [...] Nadine Schreiber MD Joglekar, Swati, MD after 01/15/2017 Family History Medical History Relation Name Comments [...] procedure are in the results section. after 01/15/2017 Results Estimated GFR (10/14/2017 6:50 AM)Only the most recent of2 resultswithin the time period is included. GFR Non Af Amer 59 (A) mL/min/1.[address] [facility] DEPARTMENT OF PATHOLOGY AND GENOMIC MEDICINE GFR Af Amer 72 mL/min/1.[address] [facility] DEPARTMENT OF Comment: PATHOLOGY AND GENOMIC Chronic [...] specimen Performing Organization Address City/State/Zipcode Phone Number [facility] DEPARTMENT OF PATHOLOGY AND [address] [place] [address] GENOMIC MEDICINE CBC with platelet and differential (10/14/2017 6:50 AM)Only the most recent of2 resultswithin the time period is included. WBC 4.65 4.50 - 11.00 k/uL [facility] DEPARTMENT OF PATHOLOGY AND GENOMIC MEDICINE RBC 3.98 (L) 4.20 - 5.50 m/uL [facility] DEPARTMENT OF PATHOLOGY AND GENOMIC MEDICINE HGB 11.6 (L) 12.0 - 16.0 g/dL [facility] DEPARTMENT OF PATHOLOGY AND GENOMIC MEDICINE HCT 35.8 (L) 37.0 - 47.0 % [facility] DEPARTMENT OF PATHOLOGY AND GENOMIC MEDICINE MCV 89.9 82.0 - 100.[address] [facility] DEPARTMENT OF PATHOLOGY AND GENOMIC MEDICINE MCH 29.1 27.0 - 34.[address] [facility] DEPARTMENT OF PATHOLOGY AND GENOMIC MEDICINE MCHC 32.4 31.0 - 37.0 g/dL [facility] DEPARTMENT OF PATHOLOGY AND GENOMIC MEDICINE RDW - SD 50.9 37.0 - 55.[address] [facility] DEPARTMENT OF PATHOLOGY AND GENOMIC MEDICINE MPV 9.9 8.8 - 13.[address] [facility] DEPARTMENT OF PATHOLOGY AND GENOMIC MEDICINE Platelet count 192 150 - 400 k/uL [facility] DEPARTMENT OF PATHOLOGY AND GENOMIC MEDICINE Nucleated RBC 0.00 /[address] [facility] DEPARTMENT OF PATHOLOGY AND GENOMIC MEDICINE Neutrophils 55.4 39.0 - 69.0 % [facility] DEPARTMENT OF PATHOLOGY AND GENOMIC MEDICINE Lymphocytes 30.5 25.0 - 45.0 % [facility] DEPARTMENT OF PATHOLOGY AND GENOMIC MEDICINE Monocytes 8.8 0.0 - 10.0 % [facility] DEPARTMENT OF PATHOLOGY AND GENOMIC MEDICINE Eosinophils 4.1 0.0 - 5.0 % [facility] DEPARTMENT OF PATHOLOGY AND GENOMIC MEDICINE Basophils 0.6 0.0 - 1.0 % [facility] DEPARTMENT OF PATHOLOGY AND GENOMIC MEDICINE Immature granulocytes 0.6Comment: 0.0 - 1.0 % [facility] DEPARTMENT OF "Immature PATHOLOGY AND GENOMIC granulocytes" MEDICINE (promyelocytes, myelocytes, metamyelocytes) Specimen Blood Performing Organization Address City/State/Zipcode Phone Number [facility] DEPARTMENT OF PATHOLOGY AND [address] [place] [address] [facility] MEDICINE Basic metabolic panel (10/14/2017 6:50 AM) Sodium 142 135 - 148 mEq/L [facility] DEPARTMENT OF PATHOLOGY AND GENOMIC MEDICINE Potassium 3.8 3.5 - 5.0 mEq/L [facility] DEPARTMENT OF PATHOLOGY AND GENOMIC MEDICINE Chloride 105 98 - 112 mEq/L [facility] DEPARTMENT OF PATHOLOGY AND GENOMIC MEDICINE CO2 25 24 - 31 mEq/L [facility] DEPARTMENT OF PATHOLOGY AND GENOMIC MEDICINE Anion gap 12 7 - 15 mEq/L [facility] DEPARTMENT OF PATHOLOGY Comment: AND [facility] Starting from September , anion gap calculation no longer incorporates potassium. Please note the change. BUN 9 6 - 20 mg/dL [facility] DEPARTMENT OF PATHOLOGY AND GENOMIC MEDICINE Creatinine 1.0 (H) 0.5 - 0.9 mg/dL [facility] DEPARTMENT OF PATHOLOGY AND GENOMIC MEDICINE Glucose 127 (H) 65 - 99 mg/dL [facility] DEPARTMENT OF PATHOLOGY AND GENOMIC MEDICINE Calcium 8.4 8.3 - 10.2 mg/dL [facility] DEPARTMENT OF PATHOLOGY AND GENOMIC MEDICINE Specimen Plasma specimen Performing Organization Address City/[facility] Phone Number [facility] DEPARTMENT OF PATHOLOGY AND [address] [place] [address] POC glucose (10/12/2017 11:58 AM)Only the most recent of3 resultswithin the time period is included. POC glucose 110 (H) 65 - 99 mg/dL [facility] DEPARTMENT OF PATHOLOGY AND Comment: [facility] Notified RN No Action Needed Meter ID: [id number] Casting Wheel Operator: Femi High Performing Organization Address City/[facility] Centercode Phone Number [facility] DEPARTMENT OF PATHOLOGY AND [address] [place], [place] [phone] [facility] ECG 12 lead (10/12/2017 9:33 AM) Ventricular rate 69 [facility] Atrial rate 69 [facility] IN interval 158 [facility] QRSD interval 106 [facility] QT interval 410 [facility] QTC interval 439 [facility] P axis 1 63 [facility] QRS axis 1 -6 [facility] T wave axis 81 [facility] EKG impression Normal sinus rhythm-Cannot rule out Anterior [facility] infarct , age undetermined-Abnormal ECG-In automated comparison with ECG of 29-MAR-2016 11:55,-No significant change was found- Performing Organization Address City/[facility] Centercode Phone Number [address] [phone] [place] Abdomen Complete (10/11/2017 5:15 PM) Narrative Performed At EXAM: [facility]:ABDOMINAL PAIN, chronic diarrhea for 4 [...] evidence of ascites. IMPRESSION: Unremarkable abdomen ultrasound. [facility]-[id number] Procedure Note Interface, Radiology Results [facility] - 10/11/2017 5:28 PM CDT EXAM: ultrasound [...] evidence of ascites. IMPRESSION: Unremarkable abdomen ultrasound. [facility]-[id number] Performing Organization Address City/[facility]/Zipcode Phone Number [facility] [address] [place] [phone] Hemoglobin A1c (10/11/2017 1:40 PM) Hemoglobin A1C 6.2 (H) 4.0 - 5.6 % [facility] DEPARTMENT OF PATHOLOGY Comment: AND [facility] HbA1c cutoffs for diagnosing diabetes: 4.0% - 5.6%=normal 5.7% - 6.4%=increased risk for diabetes (prediabetes) >=6.5%=diabetes Goals for glycemic control (ADA 2016) < 7.0%Target for non adults with diabetes. More or less stringent targets may be appropriate for individual patients. <7.5% Target for Children and adolescents with type 1 diabetes. Narrative Performed At added TSH/T4FRE per Emmanuelle Mcclure RN [facility] DEPARTMENT OF PATHOLOGY AND GENOMIC 10/11/2017 14:04 by [facility] Performing Organization Address [facility] Centercode Phone Number [facility] DEPARTMENT OF PATHOLOGY AND [address] [place] [address] hCG qualitative, urine screen (10/11/2017 1:30 PM) hCG qualitative, urine NegativeComment: [facility] DEPART[facility] OF Sensitivity of HCG test: 25 PATHOLOGY AND GENOMIC mIU/mL MEDICINE Specimen Urine Performing Organization Address City/[facility] Centercode Phone Number [facility] DEPARTMENT OF PATHOLOGY AND [address] [place], [place] [phone] [facility] C difficile toxin (10/11/2017 1:30 PM) Clostridium difficile Positive for C. difficile toxin (A) [facility] DEPARTMENT OF toxin Comment: PATHOLOGY AND GENOMIC Specimen Information MEDICINE Specimen Source: Stool Specimen Site: Nonpreserved Specimen Stool - Nonpreserved Performing Organization Address [facility] Centercode Phone Number [facility] DEPARTMENT OF PATHOLOGY AND [address] [place] [address] Hepatitis acute panel (10/11/2017 11:55 AM) Hepatitis A IgM Non-reactive Non-reactive [facility] DEPARTMENT OF PATHOLOGY AND GENOMIC MEDICINE Hepatitis B core IgM Non-reactive Non-reactive [facility] DEPARTMENT OF PATHOLOGY AND GENOMIC MEDICINE Hepatitis B surface Ag Non-reactive Non-reactive [facility] DEPARTMENT OF PATHOLOGY AND GENOMIC MEDICINE Hepatitis C Ab Non-reactive Non-reactive [facility] DEPARTMENT OF PATHOLOGY AND GENOMIC MEDICINE Specimen Serum Narrative Performed At added TSH/T4FRE per Emmanuelle Mcclure RN [facility] DEPARTMENT OF PATHOLOGY AND GENOMIC 10/11/2017 14:04 by [facility] Performing Organization Address City/[facility] Centercode Phone Number [facility] DEPARTMENT OF PATHOLOGY AND [address] [place] [address] Thyroid stimulating hormone (10/11/2017 11:55 AM) TSH 2.20 0.27 - 4.20 uIU/mL [facility] DEPARTMENT OF PATHOLOGY AND GENOMIC MEDICINE Specimen Plasma specimen Narrative Performed At added TSH/T4FRE per Emmanuelle Mcclure RN [facility] DEPARTMENT OF PATHOLOGY AND GENOMIC 10/11/2017 14:04 by [facility] Performing Organization Address City/[facility] Centercode Phone Number [facility] DEPARTMENT OF PATHOLOGY [address] T4, free (10/11/2017 11:55 AM) T4, free 1.3 0.9 - 1.7 ng/dL [facility] DEPARTMENT OF PATHOLOGY AND GENOMIC MEDICINE Specimen Plasma specimen Narrative Performed At added TSH/T4FRE per Emmanuelle Mcclure RN [facility] DEPARTMENT OF PATHOLOGY AND GENOMIC 10/11/2017 14:04 by [facility] Performing Organization Address [facility] Centercoin Phone Number [facility] DEPARTMENT OF PATHOLOGY AND [address] [place] [address] Lipid panel (10/11/2017 11:55 AM) Cholesterol 187 <200 mg/dL [facility] DEPARTMENT OF PATHOLOGY AND GENOMIC MEDICINE Triglycerides 193 (H) <150 mg/dL [facility] DEPARTMENT OF PATHOLOGY AND GENOMIC MEDICINE HDL cholesterol 33 (L) >40 mg/dL [facility] DEPARTMENT OF PATHOLOGY AND GENOMIC MEDICINE LDL cholesterol 130 (H)Comment: Result <100 mg/dL [facility] DEPARTMENT OF obtained by direct LDL PATHOLOGY AND GENOMIC measurement MEDICINE Lipid panel interpretation SeeBelow [facility] DEPARTMENT OF Comment: PATHOLOGY AND GENOMIC Total Cholesterol (mg/dL) MEDICINE <200 Desirable [id number] >=240High Triglycerides (mg/dL) <150 Normal [id number]-[id number] 200-499High >=500Very high HDL Cholesterol (mg/dL) <40Low (male) <40Low (female) LDL Cholesterol (mg/dL) <100 Optimal 100-129Near or above optimal [id number]-[id number] 160-189High >=190Very high Risk Catergories that modify [...] At added TSH/T4FRE per Emmanuelle Mcclure RN [facility] DEPARTMENT OF PATHOLOGY AND GENOMIC 10/11/2017 14:04 by [facility] Performing Organization Address City/State/[facility] Centercode Phone Number [facility] DEPARTMENT OF PATHOLOGY AND [address] [place] [phone] [facility] MEDICINE Comprehensive metabolic panel (10/11/2017 11:55 AM) Sodium 140 135 - 148 mEq/L [facility] DEPARTMENT OF PATHOLOGY AND GENOMIC MEDICINE Potassium 4.0 3.5 - 5.0 mEq/L [facility] DEPARTMENT OF PATHOLOGY AND GENOMIC MEDICINE Chloride 102 98 - 112 mEq/L [facility] DEPARTMENT OF PATHOLOGY AND GENOMIC MEDICINE CO2 22 (L) 24 - 31 mEq/L [facility] DEPARTMENT OF PATHOLOGY AND GENOMIC MEDICINE Anion gap 16 (H) 7 - 15 mEq/L [facility] DEPARTMENT OF Comment: PATHOLOGY AND GENOMIC Starting from September , anion gap calculation MEDICINE no longer incorporates potassium. Please note the change. BUN 6 6 - 20 mg/dL [facility] DEPARTMENT OF PATHOLOGY AND GENOMIC MEDICINE Creatinine 0.8 0.5 - 0.9 mg/dL [facility] DEPARTMENT OF PATHOLOGY AND GENOMIC MEDICINE Glucose 115 (H) 65 - 99 mg/dL [facility] DEPARTMENT OF PATHOLOGY AND GENOMIC MEDICINE Calcium 9.1 8.3 - 10.2 mg/dL [facility] DEPARTMENT OF PATHOLOGY AND GENOMIC MEDICINE Protein 7.5 6.3 - 8.3 g/dL [facility] DEPARTMENT OF Comment: PATHOLOGY AND GENOMIC 4.6-7.0 g/dL MEDICINE 1 week 4.4-7.6 g/dL 7 months-1year5.1-7.3 g/dL 1-2 years5.6-7.5 g/dL >3 years6.0-8.0 g/dL 18-150 6.3-8.3 g/dL Albumin 3.7 3.5 - 5.0 g/dL [facility] DEPARTMENT OF PATHOLOGY AND GENOMIC MEDICINE A/G ratio 1.0 0.7 - 3.8 [facility] DEPARTMENT OF PATHOLOGY AND GENOMIC MEDICINE Alkaline phosphatase 75 35 - 104 U/L [facility] DEPARTMENT OF PATHOLOGY AND GENOMIC MEDICINE AST 41 (H) 10 - 35 U/L [facility] DEPARTMENT OF PATHOLOGY AND GENOMIC MEDICINE ALT 55 (H) 5 - 50 U/L [facility] DEPARTMENT OF PATHOLOGY AND GENOMIC MEDICINE Total bilirubin 0.7 0.0 - 1.2 mg/dL [facility] DEPARTMENT OF PATHOLOGY AND GENOMIC MEDICINE Specimen Plasma specimen Narrative Performed At added TSH/T4FRE per Emmanuelle Mcclure RN [facility] DEPARTMENT OF PATHOLOGY AND GENOMIC 10/11/2017 14:04 by [facility] Performing Organization Address City/State/Zipcode Phone Number [facility] DEPARTMENT OF PATHOLOGY AND [address] [place] [address] [facility] MEDICINE after 01/15/2017 Insurance Payer Benefit Plan / Group Subscriber ID Type Phone Address CRISTELA RAMIREZ xxxxxxxxxxx PPO
[2018-01-16] MEDS ORDERED: NA CHLORIDE 0.9% 1,000 ML ONE (21:50)
[2018-01-16] MEDS ORDERED: ONDANSETRON 4 MG/2 ML VIAL ONE (21:50)
[2018-01-16 21:56] LABS: Absolute Lymphocytes (CBC) 2.1 K/uL (0.7-4.9); Absolute Monocytes 0.6 K/uL (0.1-1.3); Absolute Neutrophil 4.4 K/uL (1.8-8.0); Basophils % 0.6 % (0-1.3); Eosinophils % 4.2 % (0-4.4); Hematocrit 39.8 % (36.0-45.0); Lymphocytes % 28.5 % (15.3-44.8); MCH 28.6 pg (27.0-35.0); MCV 85.8 fL (80-100); MPV 8.5 fL (7.6-11.3); Monocytes % 7.5 % (3.3-12.3); RBC Red Blood Cell Count 4.63 M/uL (3.86-4.86)
[2018-01-16 22:15] LABS: Albumin 3.7 g/dL (3.4-5.0); Bilirubin Direct 0.2 mg/dL (0-0.2); Bilirubin Total 0.7 mg/dL (0.2-1.0); Potassium 3.1 mmol/L (3.5-5.1); Protein, Total 7.6 g/dL (6.4-8.2)
[2018-01-16 23:01] LABS: Urine Blood 2+ (NEG); Urine Glucose NEGATIVE (NEG); Urine Protein NEGATIVE (NEG); Urine Specific Gravity >1.030 (1.005-1.030); Urine pH 5.5 (5.0-7.0)
[2018-01-16 23:15] LABS: Calcium Oxalate Crystals- Ur FEW (NONE SEEN); Urine Bacteria <20 /HPF (<20); Urine Culture Reflex Order REFLEXED; Urine Mucus 2+ /HPF (NONE SEEN); Urine RBC <5 /HPF (NONE SEEN)
--- NOTE | 2018-01-17 01:35 | EDPHYS ---
Physician Documentation [facility] Name: Kyra Mead Age: 47 yrs Sex: Female : 1970 Arrival Date: 01/16/2018 Time: 17:53 Bed 27 Private MD: Gaston Dye E ED Physician Gaston Casey HPI: 01/16 21:22 This 47 yrs old Female presents to ER via Ambulatory with complaints of wa Nausea, Diarrhea, Abdominal Pain. 21:22 The patient presents to the emergency department with nausea, that is moderate, wa diarrhea, states feels like there is something stuck in the rectum. has been given laxatives and feels loose stool going around whatever is blocking the way. states had a h/o cdiff 4 months ago. scheduled to see GI 2 weeks from now, abdominal pain, of the diffuse. Onset: The symptoms/episode began/occurred 3 week(s) ago. Possible causes: unknown. The symptoms are aggravated by nothing. The symptoms are alleviated by nothing. Associated signs and symptoms: Pertinent positives: abdominal pain, nausea, Pertinent negatives: vomiting. Severity of symptoms: At their worst the symptoms were moderate in the emergency department the symptoms are worse mildly. The patient has experienced similar episodes in the past, a few times. The patient has been recently seen by a physician: the patient's primary care provider. 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 - Social history:: Smoking status: Patient/guardian denies using tobacco, Patient/guardian denies using alcohol. - Ebola Screening: : Patient negative for fever greater than or equal to 101.5 degrees Fahrenheit, and additional compatible Ebola Virus Disease symptoms Patient denies exposure to infectious person Patient denies travel to an Ebola-affected area in the 21 days before illness onset No symptoms or risks identified at this time. - Family history:: not pertinent. - Hospitalizations: : No recent hospitalization is reported. ROS: 21:26 Constitutional: Negative for fever, chills, and weight loss, Eyes: Negative for injury, wa pain, redness, and discharge, ENT: Negative for injury, pain, and discharge, Neck: Negative for injury, pain, and swelling, Cardiovascular: Negative for chest pain, palpitations, and edema, Respiratory: Negative for shortness of breath, cough, wheezing, and pleuritic chest pain, Back: Negative for injury and pain, : Negative for injury, bleeding, discharge, and swelling, MS/Extremity: Negative for injury and deformity, Skin: Negative for injury, rash, and discoloration, Neuro: Negative for headache, weakness, numbness, tingling, and seizure, Psych: Negative for depression, anxiety, suicide ideation, homicidal ideation, and hallucinations. 21:26 Abdomen/GI: Positive for abdominal pain, nausea, Negative for vomiting. Exam: 21:26 Constitutional: This is a well developed, well nourished patient who is awake, alert, wa and in no acute distress. Head/Face: Normocephalic, atraumatic. Eyes: Pupils equal round and reactive to light, extra-ocular motions intact. Lids and lashes normal. Conjunctiva and sclera are non-icteric and not injected. Cornea within normal limits. Periorbital areas with no swelling, redness, or edema. ENT: Nares patent. No nasal discharge, no septal abnormalities noted. Tympanic membranes are normal and external auditory canals are clear. Oropharynx with no redness, swelling, or masses, exudates, or evidence of obstruction, uvula midline. Mucous membranes moist. Neck: Trachea midline, no thyromegaly or masses palpated, and no cervical lymphadenopathy. Supple, full range of motion without nuchal rigidity, or vertebral point tenderness. No Meningismus. Chest/axilla: Normal chest wall appearance and motion. Nontender with no deformity. No lesions are appreciated. Cardiovascular: Regular rate and rhythm with a normal S1 and S2. No gallops, murmurs, or rubs. Normal PMI, no JVD. No pulse deficits. Respiratory: Lungs have equal breath sounds bilaterally, clear to auscultation and percussion. No rales, rhonchi or wheezes noted. No increased work of breathing, no retractions or nasal flaring. Back: No spinal tenderness. No costovertebral tenderness. Full range of motion. Skin: Warm, dry with normal turgor. Normal color with no rashes, no lesions, and no evidence of cellulitis. MS/ Extremity: Pulses equal, no cyanosis. Neurovascular intact. Full, normal range of motion. Neuro: Awake and alert, GCS 15, oriented to person, place, time, and situation. Cranial nerves II-XII grossly intact. Motor strength 5/5 in all extremities. Sensory grossly intact. Cerebellar exam normal. Normal gait. Psych: Awake, alert, with orientation to person, place and time. Behavior, mood, and affect are within normal limits. 21:41 Abdomen/GI: Inspection: obese Bowel sounds: normal, in all quadrants, Palpation: soft, wa mild abdominal tenderness, in all quadrants, Rectal exam: is unremarkable, rectal tone normal, hemorrhoid(s), are not appreciated, mass, is not appreciated, swelling, is not appreciated, fecal impaction, is not appreciated, the exam is chaperoned by the nurse. Vital Signs: 18:10 BP 124 / 78; Pulse 61; Resp 18; Temp 98.1(O); Pulse Ox 100% on R/A; Weight 112.49 kg; hj Height 5 ft. 6 in. (167.64 cm); Pain 8/10; 20:42 BP 121 / 62; Pulse 65; Resp 18; Pulse Ox 100% on R/A; Pain 3/10; mg2 21:52 BP 121 / 80; Pulse 75; Resp 18; Pulse Ox 100% on R/A; Pain 2/10; mg2 22:53 BP 102 / 62; Pulse 60; Resp 18; Pulse Ox 98% on R/A; mg2 01/17 00:13 BP 114 / 71; Resp 18; Pulse Ox 100% ; Pain 0/10; mg2 01:22 BP 113 / 84; Resp 18; Pulse Ox 100% on R/A; mg2 01/16 18:10 Body Mass Index 40.03 (112.49 kg, 167.64 cm) hj MDM: 01/16 20:31 Patient medically screened. wa 21:27 Differential diagnosis: Nonspecific abd pain, diverticulitis, colitis? r/o rectal mass. wa constipation with stool impaction with assoc overflow incontinence? will do rectal exam. will reassess. 01/17 01:32 Data reviewed: vital signs, nurses notes, lab test result(s), radiologic studies. Test pa interpretation: by ED physician or midlevel provider: labs noted for hypokalemia. Also 5-[address] abd/pelvis: no acute process. splenomegaly and hepatic steatosis. . Response to treatment: the patient's symptoms have markedly improved after treatment. 01/16 21:06 Order name: Basic Metabolic Panel; Complete Time: pa 01/16 21:06 Order name: CBC with Diff; Complete Time: pa 01/16 21:06 Order name: Creatinine for Radiology; Complete Time: pa 01/16 21:06 Order name: Hepatic Function; Complete Time: pa 01/16 21:06 Order name: Lipase; Complete Time: pa 01/16 21:06 Order name: Urine Microscopic Only; Complete Time: pa 01/16 21:07 Order name: CT Abd/Pelvis - W/Contrast pa 01/16 21:08 Order name: Occult Blood pa 01/16 22:05 Order name: Urine Dipstick--Ancillary (enter results); Complete Time: [facility] 01/16 22:05 Order name: Urine --Ancillary (enter results); Complete Time: [facility] 01/16 23:16 Order name: Urine Culture [facility] 01/16 18:21 Order name: Urine Dipstick-Ancillary (obtain specimen); Complete Time: 22:05 01/16 21:06 Order name: Urine Test (obtain specimen); Complete Time: 22:05 pa 01/16 21:06 Order name: IV Saline Lock; Complete Time: 21:51 pa 01/16 21:06 Order name: Labs collected and sent; Complete Time: 21:51 pa Administered Medications: 01/16 21:50 Drug: NS 0.9% 1000 ml Route: IV; Rate: 1 bolus; Site: right forearm; mg2 22:58 Follow up: Response: No adverse reaction; IV Status: Completed infusion mg2 21:51 Drug: Zofran 4 mg Route: IVP; Site: right forearm; mg2 22:57 Follow up: Response: No adverse reaction; Marked relief of symptoms [facility] 01/17 01:51 Drug: Rocephin - (cefTRIAXone) 1 grams Route: IVPB; Infused Over: 30 mins; Site: right mg2 antecubital; 01:52 Follow up: Response: No adverse reaction; Medication administered at discharge. mg2 01:51 Drug: Potassium Effervescent Tablet 50 mEq Route: PO; mg2 01:51 Follow up: Response: No adverse reaction; Medication administered at discharge. mg2 Disposition: 01/17/18 01:34 Discharged to Home. Impression: Acute Abdominal Pain, Diarrhea, UTI. - Condition is Stable. - Discharge Instructions: Urinary Tract Infection, Adult, Abdominal Pain, Adult, Wujk-fw-Evsy, Hypokalemia. - Prescriptions for Potassium Chloride 20 meq Oral Packet - take 1 packet by ORAL route once daily 1 packet in 6 (six) ounces of water or juice; Take after meal; 30 packet. - Medication Reconciliation Form, Thank You Letter, Antibiotic Education, Prescription Opioid Use form. - Follow up: Fady Saucedo MD; When: 2 - 3 days; Reason: Recheck today's complaints. - Problem is new. - Symptoms have improved. - Notes: follow with the gastro doctor as discussed with you. return to ER for rapidly worsening concerns Signatures: Dispatcher [employer] EDMS Boby Vasquez RN RN Gaston Casey MD MD pa Corey Castillo RN RN mg2 Corrections: (The following items were deleted from the chart) 01:53 01:34 01/17/2018 01:34 Discharged to Home. Impression: Acute Abdominal Pain; Diarrhea; mg2 UTI. Condition is Stable. Forms are Medication Reconciliation Form, Thank You Letter, Antibiotic Education, Prescription Opioid Use. Follow up: Fady Saucedo; When: 2 - 3 days; Reason: Recheck today's complaints. Problem is new. Symptoms have improved. wa
--- NOTE | 2018-01-17 01:35 | ER ---
Nurse's Notes [facility] Name: Kyra Mead Age: 47 yrs Sex: Female : 1970 Arrival Date: 01/16/2018 Time: 17:53 Bed 27 Private MD: Gaston Dye E Diagnosis: Acute Abdominal Pain;Diarrhea;UTI Presentation: 01/16 18:06 Presenting complaint: Patient states: i have been having diarrhea for 4 weeks with abd hj pain, i went to [facility] and told i had bowel obstruction, went ot my PCP, they did enema and it didn't all came out; was told to come to the ER: reports abd pain, 8/10; reports nausea;. Transition of care: patient was not received from another setting of care. Onset of symptoms was January 16, 2018. Risk Assessment: Do you want to hurt yourself or someone else? Patient reports no desire to harm self or others. Initial Sepsis Screen: Does the patient meet any 2 criteria? No. Patient's initial sepsis screen is negative. Does the patient have a suspected source of infection? No. Patient's initial sepsis screen is negative. Care prior to arrival: None. 18:06 Method Of Arrival: Ambulatory 18:06 Acuity: CASSY 3 hj Triage Assessment: 18:10 General: Appears in no apparent distress. uncomfortable, obese, Behavior is hj cooperative, appropriate for age, crying. Pain: Complains of pain in abdomen. GI: Reports lower abdominal pain, diarrhea, nausea. [employer]: 18:12 LMP 01/16/2018 Historical: - Allergies: 18:09 No Known Allergies; hj - Home Meds: 18:09 Celexa Oral [Active]; Hydrochlorothiazide Oral [Active]; Iron CR Oral [Active]; hj Potassium Chloride Oral [Active]; Zyrtec Oral [Active]; - PMHx: 18:09 C-diff; Hypertension; Kidney stones; hj - PSHx: 18:09 ; hj - Immunization history:: Adult Immunizations up to date. - Social history:: Smoking status: Patient/guardian denies using tobacco, Patient/guardian denies using alcohol. - Ebola Screening: : Patient negative for fever greater than or equal to 101.5 degrees Fahrenheit, and additional compatible Ebola Virus Disease symptoms Patient denies exposure to infectious person Patient denies travel to an Ebola-affected area in the 21 days before illness onset No symptoms or risks identified at this time. - Family history:: not pertinent. - Hospitalizations: : No recent hospitalization is reported. Screenin:10 Abuse screen: Denies threats or abuse. Denies injuries from another. Nutritional hj screening: No deficits noted. Tuberculosis screening: No symptoms or risk factors identified. Fall Risk None identified. Assessment: 18:10 GI: Abdomen is non-distended, obese. hj 20:40 General: Appears in no apparent distress. comfortable, Behavior is calm, cooperative. mg2 Pain: Complains of pain in abdomen Pain does not radiate. Pain currently is 4 out of 10 on a pain scale. Quality of pain is described as pressure, Pain began gradually, Is intermittent. Neuro: Level of Consciousness is awake, alert, obeys commands, Oriented to person, place, time, situation. Cardiovascular: Capillary refill < 3 seconds Patient's skin is warm and dry. Respiratory: Airway is patent Respiratory effort is even, unlabored, Respiratory pattern is regular, symmetrical. GI: Reports lower abdominal pain, diarrhea, nausea. : No signs and/or symptoms were reported regarding the genitourinary system. EENT: No signs and/or symptoms were reported regarding the EENT system. Derm: Skin is intact, Skin is pink, warm \T\ dry. normal. Musculoskeletal: Circulation, motion, and sensation intact. 23:28 Reassessment: patient sent to ct scan. mg2 01/17 00:13 Reassessment: Patient appears in no apparent distress at this time. Patient and/or mg2 family updated on plan of care and expected duration. Pain level reassessed. Patient is alert, oriented x 3, equal unlabored respirations, skin warm/dry/pink. Vital Signs: 01/16 18:10 BP 124 / 78; Pulse 61; Resp 18; Temp 98.1(O); Pulse Ox 100% on R/A; Weight 112.49 kg; hj Height 5 ft. 6 in. (167.64 cm); Pain 8/10; 20:42 BP 121 / 62; Pulse 65; Resp 18; Pulse Ox 100% on R/A; Pain 3/10; mg2 21:52 BP 121 / 80; Pulse 75; Resp 18; Pulse Ox 100% on R/A; Pain 2/10; mg2 22:53 BP 102 / 62; Pulse 60; Resp 18; Pulse Ox 98% on R/A; mg2 01/17 00:13 BP 114 / 71; Resp 18; Pulse Ox 100% ; Pain 0/10; mg2 01:22 BP 113 / 84; Resp 18; Pulse Ox 100% on R/A; mg2 01/16 18:10 Body Mass Index 40.03 (112.49 kg, 167.64 cm) hj ED Course: 01/16 17:53 Patient arrived in ED. rg4 17:54 Gaston Dye MD is Private Physician. rg4 18:09 Triage completed. hj 18:10 Arm band placed on right wrist. hj 18:10 Patient has correct armband on for positive identification. Placed in gown. Bed in low hj position. Call light in reach. Side rails up X 1. 20:31 Gaston Casey MD is Attending Physician. wa 20:38 Corey Castillo RN is Primary Nurse. mg2 21:45 Initial lab(s) drawn, by mo, sent to lab. Inserted saline lock: 22 gauge in right jp3 forearm, using aseptic technique. Blood collected. 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 mg2 23:[address] via wheelchair. kw1 23:44 CT Abd/Pelvis - W/Contrast In Process Unspecified. EDMS 23:46 CT completed. Patient tolerated procedure well. Patient moved back from CT. kw1 01/17 01:33 Fady Saucedo MD is Referral Physician. wa 01:52 IV discontinued, intact, bleeding controlled, No redness/swelling at site. Pressure mg2 dressing applied. Administered Medications: 01/16 21:50 Drug: NS 0.9% 1000 ml Route: IV; Rate: 1 bolus; Site: right forearm; mg2 22:58 Follow up: Response: No adverse reaction; IV Status: Completed infusion mg2 21:51 Drug: Zofran 4 mg Route: IVP; Site: right forearm; mg2 22:57 Follow up: Response: No adverse reaction; Marked relief of symptoms mg2 01/17 01:51 Drug: Rocephin - (cefTRIAXone) 1 grams Route: IVPB; Infused Over: 30 mins; Site: right mg2 antecubital; 01:52 Follow up: Response: No adverse reaction; Medication administered at discharge. mg2 01:51 Drug: Potassium Effervescent Tablet 50 mEq Route: PO; mg2 01:51 Follow up: Response: No adverse reaction; Medication administered at discharge. mg2 Outcome: 01:34 Discharge ordered by . marvin 01:52 Discharged to home ambulatory. mg2 01:52 Condition: stable 01:52 Discharge instructions given to patient, Instructed on discharge instructions, follow up and referral plans. medication usage, Demonstrated understanding of instructions, follow-up care, medications, Prescriptions given X 1. 01:53 Patient left the ED. mg2 Signatures: Dispatcher [employer] EDMS Boby Vasquez, RN RN Katlin Mckinney rg4 Gaston Casey MD MD wa Wilhelm, Kimberly kw1 Corey Castillo RN RN mg2 Magan Burt jp3 Corrections: (The following items were deleted from the chart) 01/16 18:12 18:10 Pulse 61bpm; Resp 18bpm; Pulse Ox 100% RA; Temp 98.1F Oral; 112.49 kg; Height 5 hj ft. 6 in.; BMI: 40.0; Pain 8/10; hj
[2018-01-17] MEDS ORDERED: POTASSIUM 25 MEQ EFFERV TAB ONE (01:39)
[2018-01-17] MEDS ORDERED: CEFTRIAXONE/SWI 1gm 1 GM/10 ML SYR ONE (01:40)
[2018-01-17 01:58] VITALS: TEMP 98.1
[2018-01-17 02:03] VITALS: O2SAT 100
[2018-01-17 02:04] VITALS: BP 113/84
--- NOTE | 2018-01-17 08:39 | RAD REPORT ---
EXAM DESCRIPTION: CTAbdomen Pelvis W Contrast - 01/17/2018 4:15 am CLINICAL HISTORY: Abdominal pain. rectal fullness;Abd pain COMPARISON: No comparisons TECHNIQUE: Biphasic CT imaging of the abdomen and pelvis was performed with 100 ml non-ionic IV cont rast. All CT scans are performed using dose optimization technique as appropriate and may include automated exposure control or mA/KV adjustment according to patient size. FINDINGS: The lung bases are clear. The liver demonstrates diffuse fatty infiltration. The spleen, pancreas, adrenal glands and kidneys a re within normal limits. No bowel obstruction, free air, free fluid or abscess. The appendix is normal. No evidence of signi ficant lymphadenopathy. No suspicious bony findings. IMPRESSION: No acute intra-abdominal or pelvic finding. Prominent fatty liver.
== END 2018-01-17 01:53 | disposition home or self-care (01) ==
LOC: ER 17:50
DX: R10.9 Unspecified abdominal pain (principal); R19.7 Diarrhea, unspecified; N39.0 Urinary tract infection, site not specified; I10 Essential (primary) hypertension
CPT/HCPCS: 36415; 74177; 80048; 80076; 81003; 81015; 81025; 83690; 85025; 87086; 87088; 99284; J0696; J2405; J7030; Q9967

== ENCOUNTER 2018-04-27 11:37 | Emergency (ER) | payer BC ==
--- OUTSIDE RECORDS SUMMARY | 2018-04-27 11:40 | XMS REPORT | Clinical Summary ---
:1970 Author Organization [facility] Address [address] [place] [address] Care Team Providers Name Role Phone Asked, [...] Problems Problem Noted Date Severe protein-calorie malnutrition (HCC) 10/12/2017 Clostridium difficile diarrhea 10/12/2017 C. 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) History of prediabetes 10/11/2017 Class 3 obesity due to excess calories without serious comorbidity with 2017 body mass index (BMI) of 40.0 to 44.9 in adult Left arm weakness 10/11/2017 Encounters Date Type Specialty Care Team Description 10/12/2017 - Hospital Encounter General Internal Beatriz Goyal, 10/15/2017 Medicine 10/11/2017 - Hospital Encounter Psychiatry Nellie Bosch, 10/12/2017 Sami Coe, Nadine Schreiber MD Joglekar, Swati, MD after 04/26/2017 Family History Medical History Relation Name Comments [...] Procedure Name Priority Date/Time Associated Comments Diagnosis ZZESTIMATED GFR Routine 10/14/2017 6:50 Results for this [...] CDT procedure are in the results section. ZZESTIMATED GFR Routine 10/11/2017 11:55 Results for this AM CDT procedure are in the results section. COMPREHENSIVE Routine 10/11/2017 11:55 Results for this METABOLIC PANEL AM CDT procedure are in the results section. HEPATITIS ACUTE PANEL Routine 10/11/2017 11:55 Results for this AM CDT procedure are in the results section. after 04/26/2017 Results Estimated GFR (10/14/2017 6:50 AM)Only the most recent of2 resultswithin the time period is included. GFR Non Af Amer 59 (A) mL/min/1.73 m2 [facility] GFR Af Amer 72 mL/min/1.73 m2 [facility] Comment: PATHOLOGY AND GENOMIC Chronic [...] specimen Performing Organization Address City/State/Zipcode Phone Number [facility] OF PATHOLOGY AND [address] [place] [address] GENOMIC MEDICINE CBC with platelet and differential (10/14/2017 6:50 AM)Only the most recent of2 resultswithin the time period is included. WBC 4.65 4.50 - 11.00 k/uL [facility]IC [facility]IC[facility] RBC 3.98 (L) 4.20 - 5.50 m/uL [facility]IC[facility] HGB 11.6 (L) 12.0 - 16.0 g/dL [facility]IC[facility] HCT 35.8 (L) 37.0 - 47.0 % [facility]ICINE MCV 89.9 82.0 - 100.0 fL [facility]IC[facility] MCH 29.1 27.0 - 34.0 pg [facility]OMIC MEDICINE MCHC 32.4 31.0 - 37.0 g/dL [facility] GENOMIC MEDICINE RDW - SD 50.9 37.0 - 55.0 fL [facility] GENOMIC MEDICINE MPV 9.9 8.8 - 13.2 fL [facility]OMIC [facility]ICINE Platelet count 192 150 - 400 k/uL [facility]OMIC MEDICINE Nucleated RBC 0.00 /100 WBC [facility]OLOGY AND GENOMIC MEDICINE Neutrophils 55.4 39.0 - 69.0 % [facility]OLOGY [facility] GENOMIC MEDICINE Lymphocytes 30.5 25.0 - 45.0 % [facility]OLOG[facility] GENOMIC MEDICINE Monocytes 8.8 0.0 - 10.0 % [facility] GENOMIC MEDICINE Eosinophils 4.1 0.0 - 5.0 % [facility] GENOMIC MEDICINE Basophils 0.6 0.0 - 1.0 % [facility] GENOMIC MEDICINE Immature granulocytes 0.6Comment: 0.0 - 1.0 % [facility] "Immature PATHOLOGY AND GENOMIC granulocytes" MEDICINE (promyelocytes, myelocytes, metamyelocytes) Specimen Blood Performing Organization Address City/[facility]/Zipcode Phone Number [facility] OF PATHOLOGY AND [address] [place] [address] [employer] MEDICINE Basic metabolic panel (10/14/2017 6:50 AM) Sodium 142 135 - 148 mEq/L [facility]OLOGY AND GENOMIC MEDICINE Potassium 3.8 3.5 - 5.0 mEq/L [facility]OMIC [facility]ICINE Chloride 105 98 - 112 mEq/L [facility] GENOMIC MEDICINE CO2 25 24 - 31 mEq/L [facility] GENOMIC MEDICINE Anion gap 12 7 - 15 mEq/L [facility] PATHOLOGY Comment: AND [facility] Starting from September , anion gap calculation no longer incorporates potassium. Please note the change. BUN 9 6 - 20 mg/dL [facility]OLOG[facility] GENOMIC MEDICINE Creatinine 1.0 (H) 0.5 - 0.9 mg/dL [facility] GENOMIC MEDICINE Glucose 127 (H) 65 - 99 mg/dL [facility] GENOMIC MEDICINE Calcium 8.4 8.3 - 10.2 mg/dL [facility]OLOGY AND GENOMIC MEDICINE Specimen Plasma specimen Performing Organization Address City/[facility] Phone Number [facility] AND [address] [place] [address] POC glucose (10/12/2017 11:58 AM)Only the most recent of3 resultswithin the time period is included. POC glucose 110 (H) 65 - 99 mg/dL [facility] PATHOLOGY AND Comment: [facility] Notified RN No Action Needed Meter ID: [id number] Process Owner: Femi High Performing Organization Address City/[facility] Phone Number [facility]OLOG[facility] AND [address] [place] [address] ECG 12 lead (10/12/2017 9:33 AM) Ventricular rate 69 [facility] Atrial rate 69 [facility] SC interval 158 [facility] QRSD interval 106 [facility] QT interval 410 [facility] QTC interval 439 [facility] P axis 1 63 [facility] QRS axis 1 -6 [facility] T wave axis 81 [facility] EKG impression Normal sinus rhythm-Cannot rule out Anterior [facility] infarct , age undetermined-Abnormal ECG-In automated comparison with ECG of 29-MAR-2016 11:55,-No significant change was found- Performing Organization Address City/[facility] Phone Number [facility] [address] [place] [address] US Abdomen Complete (10/11/2017 5:15 PM) Narrative Performed At EXAM: ultrasound abdomen RADIANT CLINICAL DATA:ABDOMINAL PAIN, chronic diarrhea for 4 [...] evidence of ascites. IMPRESSION: Unremarkable abdomen ultrasound. [id number] Procedure Note Interface, Radiology Results Incoming - 10/11/2017 5:28 PM CDT EXAM: ultrasound [...] evidence of ascites. IMPRESSION: Unremarkable abdomen ultrasound. [id number] Performing Organization Address City/[facility]/Zipcode Phone Number [address] [address] Hemoglobin A1c (10/11/2017 1:40 PM) Hemoglobin A1C 6.2 (H) 4.0 - 5.6 % [facility] PATHOLOGY Comment: AND [facility] HbA1c cutoffs for diagnosing diabetes: 4.0% - 5.6%=normal 5.7% - 6.4%=increased risk for diabetes (prediabetes) >=6.5%=diabetes Goals for glycemic control (ADA 2016) < 7.0%Target for non adults with diabetes. More or less stringent targets may be appropriate for individual patients. <7.5% Target for Children and adolescents with type 1 diabetes. Narrative Performed At added TSH/T4FRE per Emmanuelle Mcclure RN [facility]OMIC 10/11/2017 14:04 by [facility] Performing Organization Address [facility] Phone Number [facility] PATHOLOGY AND [address] [place], [place] [phone] [facility] hCG qualitative, urine screen (10/11/2017 1:30 PM) hCG qualitative, urine NegativeComment: [facility] Sensitivity of HCG test: 25 PATHOLOGY AND GENOMIC mIU/mL MEDICINE Specimen Urine Performing Organization Address [facility] Phone Number [facility]OLOGY AND [address] [place], [place] [phone] [facility] C difficile toxin (10/11/2017 1:30 PM) Clostridium difficile Positive for C. difficile toxin (A) [facility] OF toxin Comment: PATHOLOGY AND GENOMIC Specimen Information MEDICINE Specimen Source: Stool Specimen Site: Nonpreserved Specimen Stool - Nonpreserved Performing Organization Address [facility] Phone Number [facility]OLOGY AND [address] [place], [place] [phone] [facility] Hepatitis acute panel (10/11/2017 11:55 AM) Hepatitis A IgM Non-reactive Non-reactive [facility] GENOMIC MEDICINE Hepatitis B core IgM Non-reactive Non-reactive [facility] GENOMIC MEDICINE Hepatitis B surface Ag Non-reactive Non-reactive [facility] GENOMIC MEDICINE Hepatitis C Ab Non-reactive Non-reactive [facility] AND GENOMIC MEDICINE Specimen Serum Narrative Performed At added TSH/T4FRE per Emmanuelle Mcclure RN [facility] GENOMIC 10/11/2017 14:04 by [facility] Performing Organization Address City/[facility] Phone Number [facility] AND [address] [place] [address] Thyroid stimulating hormone (10/11/2017 11:55 AM) TSH 2.20 0.27 - 4.20 uIU/mL [facility]OLOGY [facility] GENOMIC MEDICINE Specimen Plasma specimen Narrative Performed At added TSH/T4FRE per Emmanuelle Mcclure RN [facility] GENOMIC 10/11/2017 14:04 by [facility] Performing Organization Address City/[facility] Phone Number [facility] PATHOLOGY AND [address] [place] [address] T4, free (10/11/2017 11:55 AM) T4, free 1.3 0.9 - 1.7 ng/dL [facility]OLOG[facility] GENOMIC MEDICINE Specimen Plasma specimen Narrative Performed At added TSH/T4FRE per Emmanuelle Mcclure RN [facility] GENOMIC 10/11/2017 14:04 by [facility] Performing Organization Address [facility] Phone Number [facility] PATHOLOGY AND [address] [place] [address] Lipid panel (10/11/2017 11:55 AM) Cholesterol 187 <200 mg/dL [facility] GENOMIC MEDICINE Triglycerides 193 (H) <150 mg/dL [facility]OLOGY [facility] GENOMIC MEDICINE HDL cholesterol 33 (L) >40 mg/dL [facility]OLOGY [facility] GENOMIC MEDICINE LDL cholesterol 130 (H)Comment: Result <100 mg/dL [facility] obtained by direct LDL PATHOLOGY AND GENOMIC measurement MEDICINE Lipid panel interpretation SeeBelow [facility] Comment: PATHOLOGY AND GENOMIC Total Cholesterol (mg/dL) MEDICINE <200 Desirable [id number] >=240High Triglycerides (mg/dL) <150 Normal [id number] 200-499High >=500Very high HDL Cholesterol (mg/dL) <40Low (male) <40Low (female) LDL Cholesterol (mg/dL) <100 Optimal 100-129Near or above optimal [phone]-cuus 160-189High >=190Very high Risk Catergories that modify [...] At added TSH/T4FRE per Emmanuelle Mcclure RN [facility] PATHOLOGY AND GENOMIC 10/11/2017 14:04 by [facility] Performing Organization Address City/State/Zipcode Phone Number [facility] OF PATHOLOGY AND [address] [place] [phone] [facility] Comprehensive metabolic panel (10/11/2017 11:55 AM) Sodium 140 135 - 148 mEq/L [facility] PATHOLOGY [facility] GENOMIC MEDICINE Potassium 4.0 3.5 - 5.0 mEq/L [facility]OLOGY AND GENOMIC MEDICINE Chloride 102 98 - 112 mEq/L [facility] PATHOLOGY AND GENOMIC MEDICINE CO2 22 (L) 24 - 31 mEq/L [facility]OLOGY [facility] GENOMIC MEDICINE Anion gap 16 (H) 7 - 15 mEq/L [facility] Comment: PATHOLOGY AND GENOMIC Starting from September , anion gap calculation MEDICINE no longer incorporates potassium. Please note the change. BUN 6 6 - 20 mg/dL [facility] PATHOLOGY AND GENOMIC MEDICINE Creatinine 0.8 0.5 - 0.9 mg/dL [facility]OLOGY [facility] GENOMIC MEDICINE Glucose 115 (H) 65 - 99 mg/dL [facility]OLOGY [facility] GENOMIC MEDICINE Calcium 9.1 8.3 - 10.2 mg/dL [facility] PATHOLOGY AND GENOMIC MEDICINE Protein 7.5 6.3 - 8.3 g/dL [facility] OF Comment: PATHOLOGY AND GENOMIC 4.6-7.0 g/dL MEDICINE 1 week 4.4-7.6 g/dL 7 months-1year5.1-7.3 g/dL 1-2 years5.6-7.5 g/dL >3 years6.0-8.0 g/dL 18-150 6.3-8.3 g/dL Albumin 3.7 3.5 - 5.0 g/dL [facility] PATHOLOGY AND GENOMIC MEDICINE A/G ratio 1.0 0.7 - 3.8 [facility] PATHOLOGY AND GENOMIC MEDICINE Alkaline phosphatase 75 35 - 104 U/L [facility] PATHOLOGY AND GENOMIC MEDICINE AST 41 (H) 10 - 35 U/L [facility] PATHOLOGY AND GENOMIC MEDICINE ALT 55 (H) 5 - 50 U/L [facility] PATHOLOGY AND GENOMIC MEDICINE Total bilirubin 0.7 0.0 - 1.2 mg/dL [facility] PATHOLOGY AND GENOMIC MEDICINE Specimen Plasma specimen Narrative Performed At added TSH/T4FRE per Emmanuelle Mcclure RN [facility] PATHOLOGY AND GENOMIC 10/11/2017 14:04 by [facility] Performing Organization Address City/State/Zipcode Phone Number [facility]MENT OF PATHOLOGY AND [address] [place] [address] [employer] MEDICINE after 04/26/2017 Insurance Payer Benefit Plan / Group Subscriber ID Type Phone Address CRISTELA ARCHIBALD PPAnderson xxxxxxxxxxx PPO
[2018-04-27 12:18] LABS: Absolute Lymphocytes (CBC) 1.5 K/uL (0.7-4.9); Absolute Monocytes 0.6 K/uL (0.1-1.3); Absolute Neutrophil 3.8 K/uL (1.8-8.0); Basophils % 0.6 % (0-1.3); Eosinophils % 3.7 % (0-4.4); Hematocrit 38.3 % (36.0-45.0); Lymphocytes % 23.9 % (15.3-44.8); MCH 28.8 pg (27.0-35.0); MCV 83.1 fL (80-100); MPV 8.6 fL (7.6-11.3)
[2018-04-27 12:23] LABS: Protime INR 1.17
[2018-04-27 12:41] LABS: ALT/SGPT 48 U/L (12-78); AST/SGOT 33 U/L (15-37); Albumin 3.9 g/dL (3.4-5.0); Alkaline Phosphatase 73 U/L (45-117); BUN Blood Urea Nitrogen 12 mg/dL (7-18); Bicarbonate 28 mmol/L (21-32); Bilirubin Direct 0.2 mg/dL (0-0.2); Bilirubin Total 0.6 mg/dL (0.2-1.0); Glucose Level 100 mg/dL (74-106); Magnesium 2.1 mg/dL (1.8-2.4); NT PRO-BNP 32 pg/mL (<125); Potassium 3.6 mmol/L (3.5-5.1); Protein, Total 7.9 g/dL (6.4-8.2); Sodium Level 138 mmol/L (136-145); Troponin (Emerg Dept Use Only) < 0.02 ng/mL (0.0-0.045)
--- NOTE | 2018-04-27 13:40 | RAD REPORT ---
EXAM DESCRIPTION: Jennifer Single View04/27/2018 1:23 pm CLINICAL HISTORY: Chest pain COMPARISON: December 2017 FINDINGS: The lungs appear clear of acute infiltrate. The heart is normal size IMPRESSION: No acute abnormalities displayed
--- NOTE | 2018-04-27 14:08 | ER ---
Nurse's Notes [facility] Name: Kyra Mead Age: 47 yrs Sex: Female : 1970 Arrival Date: 04/27/2018 Time: 11:39 Bed 14 Private MD: Gaston Dye E Diagnosis: Chest pain, unspecified Presentation: 04/27 11:46 Presenting complaint: Patient states: "I'm having shortness of breath, chest pain. I aj1 have had an upper respiratory infection since Tuesday and I coughed up brown phlegm this morning. I feel like I'm wheezing on the left side of my lung. I'm shaky. I was also just diagnosed with liver disease.". Transition of care: patient was not received from another setting of care. Onset of symptoms was April 27, 2018 at 08:30. Risk Assessment: Do you want to hurt yourself or someone else? Patient reports no desire to harm self or others. Initial Sepsis Screen: Does the patient meet any 2 criteria? No. Patient's initial sepsis screen is negative. Does the patient have a suspected source of infection? Yes: Productive cough/pneumonia. Care prior to arrival: None. 11:46 Method Of Arrival: Ambulatory aj1 11:46 Acuity: CASSY 3 aj1 Triage Assessment: 11:50 General: Appears in no apparent distress. comfortable, Behavior is calm, cooperative, aj1 appropriate for age. Pain: Complains of pain in chest Pain currently is 5 out of 10 on a pain scale. Neuro: Level of Consciousness is awake, alert, obeys commands. Cardiovascular: Reports chest pain, shortness of breath, Patient's skin is warm and dry. Respiratory: Airway is patent Respiratory effort is even, unlabored, Respiratory pattern is regular, symmetrical. THERAPIST RESPIRATORY: 11:50 LMP 04/20/2018 aj1 Historical: - Allergies: 11:50 No Known Allergies; aj1 - Home Meds: 11:55 Celexa Oral [Active]; Hydrochlorothiazide Oral [Active]; Iron CR Oral [Active]; hj Potassium Chloride Oral [Active]; Zyrtec Oral [Active]; - PMHx: 11:50 C-diff; Hypertension; Kidney stones; liver disease; aj1 - PSHx: 11:55 ; hj - Immunization history:: Flu vaccine is not up to date. - Social history:: Smoking status: Patient uses tobacco products, smokes one pack cigarettes per day. - Ebola Screening: : Patient denies travel to an Ebola-affected area in the 21 days before illness onset. Screenin:53 Abuse screen: Denies threats or abuse. Denies injuries from another. Nutritional hj screening: No deficits noted. Tuberculosis screening: No symptoms or risk factors identified. Fall Risk None identified. Assessment: 11:54 Pain: Pain does not radiate. Pain began. hj 13:01 Reassessment: Patient and/or family updated on plan of care and expected duration. Pain hj level reassessed. Patient is alert, oriented x 3, equal unlabored respirations, skin warm/dry/pink. pt crying, states, "im just tired of being sick"; awaiting results and POC:. Vital Signs: 11:50 BP 120 / 79; Pulse 64; Resp 18; Temp 97.0; Pulse Ox 99% on R/A; Weight 104.33 kg; aj1 Height 5 ft. 6 in. (167.64 cm) (R); Pain 5/10; 11:59 BP 114 / 82; Pulse 67; Resp 18; Pulse Ox 95% on R/A; hj 13:02 BP 118 / 80; Pulse 56; Resp 18; Pulse Ox 100% on R/A; hj 14:05 BP 114 / 69; Pulse 52; Resp 18; Pulse Ox 100% on R/A; hj 11:50 Body Mass Index 37.12 (104.33 kg, 167.64 cm) aj1 ED Course: 11:39 Patient arrived in ED. sb2 11:39 Gaston Dye MD is Private Physician. sb2 11:49 Triage completed. aj1 11:50 Arm band placed on Patient placed in an exam room. aj1 11:50 Initial lab(s) drawn, by ar, sent to lab. Inserted saline lock: 22 gauge in right hj antecubital area, using aseptic technique. Blood collected. 11:52 Boby Vasquez, ANIA is Primary Nurse. hj 11:53 Patient has correct armband on for positive identification. Placed in gown. Bed in low hj position. Call light in reach. Side rails up X 1. court recording monitor on. Pulse ox on. NIBP on. 11:54 Patient maintains SpO2 saturation greater than 95% on room air. hj 12:07 Rod Padilla PA is PHCP. jr8 12:07 Matthew Ngo MD is Attending Physician. jr8 12:28 EKG done, by glass technician. reviewed by Rod ADLER. at1 13:23 XRAY Chest (1 view) In Process Unspecified. EDMS 14:07 Gaston Dye MD is Referral Physician. jr8 14:18 No provider procedures requiring assistance completed. IV discontinued, intact, hj bleeding controlled, No redness/swelling at site. Pressure dressing applied. Administered Medications: No medications were administered Outcome: 14:07 Discharge ordered by . jr8 14:18 Discharged to home ambulatory. hj 14:18 Condition: stable 14:18 Discharge instructions given to patient, Instructed on discharge instructions, follow up and referral plans. Demonstrated understanding of instructions, follow-up care. 14:20 Patient left the ED. hj Signatures: Dispatcher [employer] EDAL Carly Medrano RN RN aj1 Rod Padilla PA PA jr8 Laura Jeffers, maxillofacial pathology EKG Tat1 Boby Vasquez RN RN hj Leanna Ramos sb2 Corrections: (The following items were deleted from the chart) 14:06 13:02 BP 118 / 80; Pulse 65bpm; Resp 18bpm; Pulse Ox 100% RA; hj hj
--- NOTE | 2018-04-27 14:08 | EDPHYS ---
Physician Documentation [facility] Name: Kyra Mead Age: 47 yrs Sex: Female : 1970 Arrival Date: 04/27/2018 Time: 11:39 Bed 14 Private MD: Gaston Dye E ED Physician Matthew Ngo HPI: 04/27 14:05 This 47 yrs old Female presents to ER via Ambulatory with complaints of Chest jr8 Pain. 14:05 Onset: acutely, today. The pain does not radiate. Associated signs and symptoms: jr8 Pertinent positives: cough. The chest pain is described as sharp. Duration: The patient or guardian reports a single episode. Severity of pain: At its worst the pain was mild in the emergency department the pain is unchanged. The patient has not experienced similar symptoms in the past. The patient has been recently seen by a physician:. Patient stated that she is undergoing work up for liver disease fluid to abdomen. Stated that she has had cough over the past couple of days and coughed up brown mucous. Had chest pain today which brought her to the ED . 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 - Social history:: Smoking status: Patient uses tobacco products, smokes one pack cigarettes per day. - Ebola Screening: : Patient denies travel to an Ebola-affected area in the 21 days before illness onset. ROS: 14:05 Eyes: Negative for injury, pain, redness, and discharge, ENT: Negative for injury, jr8 pain, and discharge, Neck: Negative for injury, pain, and swelling, Abdomen/GI: Negative for abdominal pain, nausea, vomiting, diarrhea, and constipation, Back: Negative for injury and pain, MS/Extremity: Negative for injury and deformity, Skin: Negative for injury, rash, and discoloration, Neuro: Negative for headache, weakness, numbness, tingling, and seizure. 14:05 Cardiovascular: Positive for chest pain, Negative for edema, orthopnea, palpitations, paroxysmal nocturnal dyspnea. 14:05 Respiratory: Positive for cough, brown, Negative for dyspnea on exertion, hemoptysis, shortness of breath, wheezing. Exam: 14:05 Eyes: Pupils equal round and reactive to light, extra-ocular motions intact. Lids and jr8 lashes normal. Conjunctiva and sclera are non-icteric and not injected. Cornea within normal limits. Periorbital areas with no swelling, redness, or edema. ENT: Nares patent. No nasal discharge, no septal abnormalities noted. Tympanic membranes are normal and external auditory canals are clear. Oropharynx with no redness, swelling, or masses, exudates, or evidence of obstruction, uvula midline. Mucous membranes moist. Neck: Trachea midline, no thyromegaly or masses palpated, and no cervical lymphadenopathy. Supple, full range of motion without nuchal rigidity, or vertebral point tenderness. No Meningismus. Cardiovascular: Regular rate and rhythm with a normal S1 and S2. No gallops, murmurs, or rubs. Normal PMI, no JVD. No pulse deficits. Respiratory: Lungs have equal breath sounds bilaterally, clear to auscultation and percussion. No rales, rhonchi or wheezes noted. No increased work of breathing, no retractions or nasal flaring. Abdomen/GI: Soft, non-tender, with normal bowel sounds. No distension or tympany. No guarding or rebound. No evidence of tenderness throughout. Back: No spinal tenderness. No costovertebral tenderness. Full range of motion. Skin: Warm, dry with normal turgor. Normal color with no rashes, no lesions, and no evidence of cellulitis. MS/ Extremity: Pulses equal, no cyanosis. Neurovascular intact. Full, normal range of motion. Neuro: Awake and alert, GCS 15, oriented to person, place, time, and situation. Cranial nerves II-XII grossly intact. Motor strength 5/5 in all extremities. Sensory grossly intact. Cerebellar exam normal. Normal gait. Vital Signs: 11:50 BP 120 / 79; Pulse 64; Resp 18; Temp 97.0; Pulse Ox 99% on R/A; Weight 104.33 kg; aj1 Height 5 ft. 6 in. (167.64 cm) (R); Pain 5/10; 11:59 BP 114 / 82; Pulse 67; Resp 18; Pulse Ox 95% on R/A; hj 13:02 BP 118 / 80; Pulse 56; Resp 18; Pulse Ox 100% on R/A; hj 14:05 BP 114 / 69; Pulse 52; Resp 18; Pulse Ox 100% on R/A; hj 11:50 Body Mass Index 37.12 (104.33 kg, 167.64 cm) aj1 MDM: 12:07 Patient medically screened. jr8 14:05 Data reviewed: vital signs, nurses notes, lab test result(s), EKG, radiologic studies, jr8 plain films. Data interpreted: Pulse oximetry: on room air is 100 %. Interpretation: normal. Counseling: I had a detailed discussion with the patient and/or guardian regarding: the historical points, exam findings, and any diagnostic results supporting the discharge/admit diagnosis, lab results, radiology results, the need for outpatient follow up, a family practitioner, to return to the emergency department if symptoms worsen or persist or if there are any questions or concerns that arise at home. 14:08 ED course: Patient with complete resolution of symptoms. No acute findings on ECG, jr8 imaging, or labs. Will send home to follow up with PCP. If worse to return. Patient is good with this plan . 04/27 12:08 Order name: Basic Metabolic Panel; Complete Time: 12:46 [facility] 04/27 12:08 Order name: CBC with Diff; Complete Time: 12:29 [facility] 04/27 12:08 Order name: LFT's; Complete Time: 12:46 [facility] 04/27 12:08 Order name: Magnesium; Complete Time: 12:46 [facility] 04/27 12:08 Order name: NT PRO-BNP; Complete Time: 12:46 [facility] 04/27 12:08 Order name: PT-INR; Complete Time: 12:29 [facility] 04/27 11:58 Order name: EKG - Nurse/Tech; Complete Time: 12:06 04/27 12:08 Order name: Troponin (emerg Dept Use Only); Complete Time: 12:46 [facility] 04/27 12:08 Order name: XRAY Chest (1 view); Complete Time: 13:43 [facility] 04/27 12:08 Order name: EKG; Complete Time: 12:09 04/27 12:08 Order name: Cardiac monitoring; Complete Time: 12:8 04/27 12:08 Order name: IV Saline Lock; Complete Time: 12:8 04/27 12:08 Order name: Labs collected and sent; Complete Time: 12:11 04/27 12:08 Order name: O2 Per Protocol; Complete Time: 12:04/27 12:08 Order name: O2 Sat Monitoring; Complete Time: 12: Administered Medications: No medications were administered Disposition: 16:26 Co-signature as Attending Physician, Matthew Ngo MD I agree with the assessment and kdr plan of care. Disposition: 04/27/18 14:07 Discharged to Home. Impression: Chest pain, unspecified. - Condition is Stable. - Discharge Instructions: Nonspecific Chest Pain. - Medication Reconciliation Form, Thank You Letter, Antibiotic Education, Prescription Opioid Use form. - Follow up: Gaston Dye MD; When: 2 - 3 days; Reason: If symptoms return, Recheck today's complaints, Continuance of care, Re-evaluation by your physician. - Problem is new. - Symptoms are resolved. Signatures: Dispatcher [employer] EDMS Carly Medrano RN RN aj1 Matthew Ngo MD MD [facility] Rod Padilla PA PA jr8 Boby Vasquez RN RN hj Corrections: (The following items were deleted from the chart) 14:20 14:07 04/27/2018 14:07 Discharged to Home. Impression: Chest pain, unspecified. hj Condition is Stable. Forms are Medication Reconciliation Form, Thank You Letter, Antibiotic Education, Prescription Opioid Use. Follow up: Gaston Dye; When: 2 - 3 days; Reason: If symptoms return, Recheck today's complaints, Continuance of care, Re-evaluation by your physician. Problem is new. Symptoms are resolved. jr8
[2018-04-27 14:26] VITALS: TEMP 97
[2018-04-27 14:29] VITALS: O2SAT 100
[2018-04-27 14:30] VITALS: BP 114/69
--- NOTE | 2018-04-28 07:09 | EKG ---
Test Date: 2018-04-27 Test Time: 11:59:55 Staff Air Tactical Officer: AG2 MEASUREMENT RESULTS: Intervals: Rate: 61 NM: 156 QRSD: 96 QT: 416 QTc: 418 [place]: P: 8 NM: 156 QRS: -18 T: 142 INTERPRETIVE STATEMENTS: Normal sinus rhythm Moderate voltage criteria for LVH, may be normal variant Nonspecific T wave abnormality Abnormal ECG Compared to ECG 12/30/2017 10:30:58 T-wave abnormality now present Myocardial infarct finding no longer present Electronically Signed On 04-28-18 07:07:17 TRACK HELPER by Tanmay Prakash
== END 2018-04-27 14:20 | disposition home or self-care (01) ==
LOC: ER 11:37
DX: R07.9 Chest pain, unspecified (principal); I10 Essential (primary) hypertension; F17.210 Nicotine dependence, cigarettes, uncomplicated
CPT/HCPCS: 36415; 71045; 80048; 80076; 83735; 83880; 84484; 85025; 85610; 93005; 99285

== ENCOUNTER 2018-10-03 11:26 | Emergency (ER) | payer BC ==
[2018-10-03 12:47] LABS: Absolute Lymphocytes (CBC) 1.4 K/uL (0.7-4.9); Absolute Monocytes 0.6 K/uL (0.1-1.3); Basophils % 0.5 % (0-1.3); Eosinophils % 3.1 % (0-4.4); Hematocrit 33.8 % (36.0-45.0); Lymphocytes % 19.4 % (15.3-44.8); MPV 8.6 fL (7.6-11.3); Monocytes % 7.7 % (3.3-12.3); Protime INR 1.19; RBC Red Blood Cell Count 4.33 M/uL (3.86-4.86)
[2018-10-03 13:00] LABS: ALT/SGPT 24 U/L (12-78); AST/SGOT 17 U/L (15-37); Albumin 3.9 g/dL (3.4-5.0); Alkaline Phosphatase 100 U/L (45-117); BUN Blood Urea Nitrogen 15 mg/dL (7-18); Bicarbonate 26 mmol/L (21-32); Bilirubin Direct 0.1 mg/dL (0-0.2); Bilirubin Total 0.8 mg/dL (0.2-1.0); Glucose Level 98 mg/dL (74-106); NT PRO-BNP 9 pg/mL (<125); Protein, Total 8.1 g/dL (6.4-8.2); Sodium Level 140 mmol/L (136-145); Troponin (Emerg Dept Use Only) < 0.02 ng/mL (0.0-0.045)
--- NOTE | 2018-10-03 13:04 | RAD REPORT ---
EXAM DESCRIPTION: RAD - Chest Single View - 10/03/2018 12:58 pm CLINICAL HISTORY: CHEST PAIN Chest pain. COMPARISON: Chest Single View dated 04/27/2018; Chest Single View dated 12/30/2017; Chest Single View dated 10/09/2017; Chest Single View dated 10/07/2017 FINDINGS: Portable technique limits examination quality. The lungs are grossly clear. The heart is normal in size. No displaced fractures.Mild scoliotic curva ture of the thoracic spine. IMPRESSION: No acute intrathoracic process suspected.
[2018-10-03 13:06] LABS: Potassium 2.8 mmol/L (3.5-5.1)
[2018-10-03] MEDS ORDERED: POTASSIUM 25 MEQ EFFERV TAB ONE (14:02)
--- NOTE | 2018-10-03 17:12 | EKG ---
Test Date: 2018-10-03 Test Time: 11:41:11 Can Runner: KAREL MEASUREMENT RESULTS: Intervals: Rate: 92 IA: 158 QRSD: 90 QT: 372 QTc: 460 [place]: P: 50 IA: 158 QRS: -30 T: 97 INTERPRETIVE STATEMENTS: Normal sinus rhythm Possible Left atrial enlargement Left axis deviation Possible Anterior infarct, age undetermined Abnormal ECG Non specific T abnormality Compared to ECG 04/27/2018 11:59:55 Left-axis deviation now present Possible myocardial infarct finding now present Left ventricular hypertrophy no longer present Electronically Signed On 10-03-18 17:11:33 CDT by Jeremy Hernandez
--- NOTE | 2018-10-03 17:57 | ER ---
Nurse's Notes [facility] Name: Kyra Mead Age: 48 yrs Sex: Female : 1970 Arrival Date: 10/03/2018 Time: 11:27 Bed 2 Private MD: Gaston Dye E Diagnosis: Chest pain, unspecified Presentation: 10/03 11:31 Presenting complaint: Patient states: arjun been having chest pain that started 30 mins hj ago and moves to the L arm area; denies N/V; denies SOB;. Transition of care: patient was not received from another setting of care. Onset of symptoms was October 03, 2018. Risk Assessment: Do you want to hurt yourself or someone else? Patient reports no desire to harm self or others. Initial Sepsis Screen: Does the patient meet any 2 criteria? No. Patient's initial sepsis screen is negative. Does the patient have a suspected source of infection? No. Patient's initial sepsis screen is negative. Care prior to arrival: None. 11:31 Method Of Arrival: Ambulatory 11:31 Acuity: CASSY 3 hj Triage Assessment: 11:32 General: Appears in no apparent distress. uncomfortable, Behavior is cooperative, hj appropriate for age, crying. Pain: Complains of pain in chest and left arm Pain radiates to left arm. Cardiovascular: Reports chest pain. 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 - Social history:: Smoking status: Patient/guardian denies using tobacco. - Ebola Screening: : No symptoms or risks identified at this time. Screenin:04 Abuse screen: Denies threats or abuse. Denies injuries from another. Nutritional ph screening: No deficits noted. Tuberculosis screening: No symptoms or risk factors identified. Fall Risk None identified. Assessment: 11:34 Pain: Pain began 30 min ago. hj 12:01 General: Appears in no apparent distress. uncomfortable, well groomed, Behavior is ph calm, cooperative, appropriate for age, Denies fever, feeling ill. Pain: Complains of pain in chest Pain radiates to left arm Pain began 30 min ago. Aggravated by increased activity. Neuro: Level of Consciousness is awake, alert, obeys commands, Oriented to person, place, time, situation, Reports dizziness. Cardiovascular: Reports chest pain, lightheadedness, Capillary refill < 3 seconds in bilateral fingers Patient's skin is warm and dry. Chest pain quality is pressure, is located in left anterior chest wall substernal area radiates to left arm(s) began 30 minutes prior to arrival is aggravated by activity. Respiratory: Airway. GI: No signs and/or symptoms were reported involving the gastrointestinal system. Reports normal bowel habits, Patient currently denies abdominal pain, diarrhea, nausea, vomiting. Derm: Skin is intact, is healthy with good turgor, Skin is pink, warm \T\ dry. Musculoskeletal: Circulation, motion, and sensation intact. Range of motion: intact in all extremities. 14:01 Reassessment: Patient appears in no apparent distress at this time. Patient and/or sg family updated on plan of care and expected duration. Pain level reassessed. Patient is alert, oriented x 3, equal unlabored respirations, skin warm/dry/pink. pt reports dizziness while sitting upright in bed at this time, reports is getting better. 15:41 Reassessment: Patient appears in no apparent distress at this time. Patient and/or sg family updated on plan of care and expected duration. Pain level reassessed. pt ambulatory to ER restroom, with even steady gait. 17:09 Reassessment: Patient appears in no apparent distress at this time. Patient and/or ph family updated on plan of care and expected duration. Pain level reassessed. Patient is alert, oriented x 3, equal unlabored respirations, skin warm/dry/pink. Pt resting quietly, awaiting results of repeat cardiac enzymes. Vital Signs: 11:33 BP 113 / 77; Pulse 89; Resp 18; Temp 99.2(O); Pulse Ox 99% on R/A; Weight 97.52 kg; hj Height 5 ft. 6 in. (167.64 cm); Pain 7/10; 12:08 BP 110 / 77; Pulse 81; Resp 18; Pulse Ox 100% on R/A; ph 14:33 BP 113 / 65; Pulse 73; Resp 16; Pulse Ox 100% on R/A; sg 16:00 BP 107 / 71; Pulse 67; Resp 16; Pulse Ox 100% on R/A; ph 17:00 BP 107 / 74; Pulse 66; Resp 14; Pulse Ox 100% on R/A; ph 11:33 Body Mass Index 34.70 (97.52 kg, 167.64 cm) Vitals: 12:08 Cardiac Rhythm Assessment Sinus rhythm. ph ED Course: 11:27 Patient arrived in ED. as 11:28 Gaston Dye MD is Private Physician. as 11:32 Triage completed. hj 11:32 Arm band placed on right wrist. hj 11:52 EKG done, by security installation sales technician. dt2 11:53 Sascha Lutz MD is Attending Physician. 12:01 Christy Hughes RN is Primary Nurse. ph 12:05 No provider procedures requiring assistance completed. Inserted saline lock: 22 gauge ph in right antecubital area, using aseptic technique. Blood collected. Patient maintains SpO2 saturation greater than 95% on room air. 12:07 Patient has correct armband on for positive identification. Placed in gown. Bed in low ph position. Call light in reach. Side rails up X2. monitoring and evaluation advisor on. Pulse ox on. NIBP on. 12:53 X-ray completed. Portable x-ray completed in exam room. Patient tolerated procedure sw well. 12:59 XRAY Chest (1 view) In Process Unspecified. EDMS 18:20 IV discontinued, intact, bleeding controlled, No redness/swelling at site. Pressure ph dressing applied. Administered Medications: 14:00 Drug: Potassium Effervescent Tablet 50 mEq Route: PO; sg 14:30 Follow up: Response: No adverse reaction ph Outcome: 17:56 Discharge ordered by MD. 18:22 Patient left the ED. ph 18:22 Discharged to home ambulatory. ph 18:22 Condition: good 18:22 Discharge instructions given to patient, Instructed on discharge instructions, follow up and referral plans. Demonstrated understanding of instructions, follow-up care. Signatures: Dispatcher [employer] EDMS Arnold Torres, ANIA JORGE sg Lynda Villa Patricia, RN RN Mercedes Smith Henry, RN RN Sascha Lutz MD MD Nu Beck dt2 Corrections: (The following items were deleted from the chart) 11:35 11:33 Pulse 103bpm; Resp 18bpm; Pulse Ox 99% RA; Temp 99.2F Oral; 97.52 kg; Height 5 hj ft. 6 in.; BMI: 34.7; Pain 7/10; hj
--- NOTE | 2018-10-03 17:57 | EDPHYS ---
Physician Documentation [facility] Name: Kyra Mead Age: 48 yrs Sex: Female : 1970 Arrival Date: 10/03/2018 Time: 11:27 Bed 2 Private MD: Gaston Dye E ED Physician Sascha Lutz HPI: 10/03 17:53 This 48 yrs old Female presents to ER via Ambulatory with complaints of Chest gs Pain. 17:53 The patient or guardian reports chest pain that is located primarily in the anterior gs chest wall. Onset: gradually. 17:53 Onset: 1 hour(s) ago. The pain does not radiate. Associated signs and symptoms: gs Pertinent positives: tingling left arm, Pertinent negatives: diaphoresis, headache, near syncope, shortness of breath. The chest pain is described as a heaviness. Duration: The patient or guardian reports multiple episodes, that are intermittent, that wax and wane, with no pattern. Modifying factors: The symptoms are alleviated by nothing. the symptoms are aggravated by nothing. Severity of pain: At its worst the pain was moderate in the emergency department the pain has improved markedly. The patient has experienced similar episodes in the past, several times. 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 - Social history:: Smoking status: Patient/guardian denies using tobacco. - Ebola Screening: : No symptoms or risks identified at this time. ROS: 17:53 All other systems are negative. gs Exam: 17:53 Head/Face: Normocephalic, atraumatic. Eyes: Pupils equal round and reactive to light, gs extra-ocular motions intact. Lids and lashes normal. Conjunctiva and sclera are non-icteric and not injected. Cornea within normal limits. Periorbital areas with no swelling, redness, or edema. ENT: Nares patent. No nasal discharge, no septal abnormalities noted. Tympanic membranes are normal and external auditory canals are clear. Oropharynx with no redness, swelling, or masses, exudates, or evidence of obstruction, uvula midline. Mucous membranes moist. Neck: Trachea midline, no thyromegaly or masses palpated, and no cervical lymphadenopathy. Supple, full range of motion without nuchal rigidity, or vertebral point tenderness. No Meningismus. Chest/axilla: Normal chest wall appearance and motion. Nontender with no deformity. No lesions are appreciated. Cardiovascular: Regular rate and rhythm with a normal S1 and S2. No gallops, murmurs, or rubs. Normal PMI, no JVD. No pulse deficits. Respiratory: Lungs have equal breath sounds bilaterally, clear to auscultation and percussion. No rales, rhonchi or wheezes noted. No increased work of breathing, no retractions or nasal flaring. Abdomen/GI: Soft, non-tender, with normal bowel sounds. No distension or tympany. No guarding or rebound. No evidence of tenderness throughout. Back: No spinal tenderness. No costovertebral tenderness. Full range of motion. Skin: Warm, dry with normal turgor. Normal color with no rashes, no lesions, and no evidence of cellulitis. MS/ Extremity: Pulses equal, no cyanosis. Neurovascular intact. Full, normal range of motion. Neuro: Awake and alert, GCS 15, oriented to person, place, time, and situation. Cranial nerves II-XII grossly intact. Motor strength 5/5 in all extremities. Sensory grossly intact. Cerebellar exam normal. Normal gait. 17:53 Constitutional: The patient appears in no acute distress, alert, awake. 17:53 ECG was reviewed by the Attending Physician. Vital Signs: 11:33 BP 113 / 77; Pulse 89; Resp 18; Temp 99.2(O); Pulse Ox 99% on R/A; Weight 97.52 kg; hj Height 5 ft. 6 in. (167.64 cm); Pain 7/10; 12:08 BP 110 / 77; Pulse 81; Resp 18; Pulse Ox 100% on R/A; ph 14:33 BP 113 / 65; Pulse 73; Resp 16; Pulse Ox 100% on R/A; sg 16:00 BP 107 / 71; Pulse 67; Resp 16; Pulse Ox 100% on R/A; ph 17:00 BP 107 / 74; Pulse 66; Resp 14; Pulse Ox 100% on R/A; ph 11:33 Body Mass Index 34.70 (97.52 kg, 167.64 cm) hj MDM: 12:05 Patient medically screened. gs 17:53 Differential diagnosis: acute myocardial infarction, coronary artery disease chest wall gs pain, pneumonia, pneumothorax. Data reviewed: vital signs, nurses notes, lab test result(s), EKG, radiologic studies. 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 18:02 HEART Score: History: Slightly Suspicious (0), ECG: Non specific repolarization gs disturbance / LBTB / PM (1), Age: > 45 and < 65 years (1), Risk Factors: 1 or 2 risk factors (1), Troponin: < or = 1 x Normal Limit (0). 10/03 12:07 Order name: Basic Metabolic Panel; Complete Time: 13:08 10/03 12:07 Order name: CBC with Diff; Complete Time: 13:08 10/03 12:07 Order name: LFT's; Complete Time: 13:08 10/03 12:07 Order name: Magnesium; Complete Time: 13:08 10/03 12:07 Order name: NT PRO-BNP; Complete Time: 13:08 10/03 12:07 Order name: PT-INR; Complete Time: 13:08 10/03 11:35 Order name: EKG; Complete Time: 11:36 10/03 12:07 Order name: Troponin (emerg Dept Use Only); Complete Time: 13:08 10/03 12:07 Order name: XRAY Chest (1 view); Complete Time: 13:08 10/03 12:07 Order name: Cardiac monitoring; Complete Time: 12:11 10/03 12:07 Order name: IV Saline Lock; Complete Time: 12:11 10/03 12:07 Order name: Labs collected and sent; Complete Time: 12:11 10/03 13:41 Order name: Troponin (emerg Dept Use Only); Complete Time: 17:50 10/03 12:07 Order name: O2 Per Protocol; Complete Time: 12:11 10/03 12:07 Order name: O2 Sat Monitoring; Complete Time: 12:11 gs EC:53 Rate is 92 beats/min. Rhythm is regular. UT interval is normal. QRS interval is normal. gs No Q waves. T waves are Flattened. Clinical impression: NSR w/ Non-specific ST/T Changes. Interpreted by me. Administered Medications: 14:00 Drug: Potassium Effervescent Tablet 50 mEq Route: PO; 14:30 Follow up: Response: No adverse reaction ph Disposition: 10/03/18 17:56 Discharged to Home. Impression: Chest pain, unspecified. - Condition is Stable. - Discharge Instructions: Nonspecific Chest Pain. - Medication Reconciliation Form, Thank You Letter, Antibiotic Education, Prescription Opioid Use form. - Follow up: Private Physician; When: 2 - 3 days; Reason: Re-evaluation by your physician. Signatures: Dispatcher [employer] EDMS Arnold Torres RN RN Christy Hughes RN RN Boby Vasquez RN RN Sascha Lutz MD MD Corrections: (The following items were deleted from the chart) 18:22 17:56 10/03/2018 17:56 Discharged to Home. Impression: Chest pain, unspecified. ph Condition is Stable. Forms are Medication Reconciliation Form, Thank You Letter, Antibiotic Education, Prescription Opioid Use. Follow up: Private Physician; When: 2 - 3 days; Reason: Re-evaluation by your physician. gs
[2018-10-03 18:28] VITALS: TEMP 99.2
[2018-10-03 18:29] VITALS: O2SAT 100
[2018-10-03 18:33] VITALS: BP 107/74
== END 2018-10-03 18:22 | disposition home or self-care (01) ==
LOC: ER 11:26
DX: R07.9 Chest pain, unspecified (principal); I10 Essential (primary) hypertension; K76.9 Liver disease, unspecified
CPT/HCPCS: 36415; 71045; 80048; 80076; 83735; 83880; 84484; 85025; 85610; 93005; 99285

== ENCOUNTER 2019-01-02 10:10 | Emergency (ER) | payer BC ==
--- OUTSIDE RECORDS SUMMARY | 2019-01-02 10:36 | XMS REPORT | Clinical Summary ---
:1970 Author Organization [facility] Address [address] [place] [id number] Care Team Providers Name Role Phone Asked, No Pcp Primary Care Provider Unavailable Allergies No Known Allergies Medications No known medications Active Problems Problem Noted Date Severe protein-calorie malnutrition 10/12/2017 Clostridium difficile diarrhea 10/12/2017 C. 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 History of prediabetes 10/11/2017 Class 3 obesity due to excess calories without serious comorbidity with 2017 body mass index (BMI) of 40.0 to 44.9 in adult Left arm weakness 10/11/2017 Family History Medical History Relation Name Comments Depression Mother Diabetes Mother Stroke Mother Relation Name Status Comments Father (Age 34) Mother Social History Tobacco Use Types Packs/Day Years Used Date Current Every Day Smoker Cigarettes 1 Smokeless Tobacco: Never Used Alcohol Use Drinks/Week oz/Week Comments No Sex Assigned at Date Recorded Not on file Job Start Date Occupation Industry Not on file Not on file Not on file Travel History Travel Start Travel End No recent travel history available. Last Filed Vital Signs Not on file Plan of Treatment Health Maintenance Due Date Last Done Comments INFLUENZA VACCINE 01/18/2019 Results Not on fileafter 01/01/2018 Advance Directives Patient has advance care planning documents, and code status on file. For more information, please contact:[place] [address] Code Status Date Activated Date Inactivated Comments Full Code 10/11/2017 7:45 AM 10/12/2017 10:09 PM Code Status decision reached by: Patient
--- NOTE | 2019-01-02 12:22 | RAD REPORT ---
EXAM DESCRIPTION: CT - Head Brain Wo Cont - 01/02/2019 12:15 pm CLINICAL HISTORY: Headache COMPARISON: None. TECHNIQUE: Axial 5 mm thick images of the head were obtained without IV contrast. All CT scans are performed using dose optimization technique as appropriate and may include automated exposure control or mA/KV adjustment according to patient size. FINDINGS: No intracranial hemorrhage, mass, edema or shift of mid-line structures. No acute infarcti on changes seen. No abnormal extra-axial fluid collections. Ventricles are normal. Mastoid air cells and visualized portions of the paranasal sinuses are clear. No acute bony findings. IMPRESSION: Negative non-contrast CT head examination.
[2019-01-02] MEDS ORDERED: METOCLOPRAMIDE 10 MG/2mL INJ ONE (12:32)
[2019-01-02] MEDS ORDERED: DIPHENHYDRAMINE 50 MG/ML VIAL ONE (12:32)
[2019-01-02 12:33] LABS: Absolute Lymphocytes (CBC) 1.7 K/uL (0.7-4.9); Basophils % 0.4 % (0-1.3); Eosinophils % 4.3 % (0-4.4); Hematocrit 34.9 % (36.0-45.0); Lymphocytes % 27.9 % (15.3-44.8); MPV 7.9 fL (7.6-11.3); Monocytes % 8.6 % (3.3-12.3); RBC Red Blood Cell Count 4.28 M/uL (3.86-4.86)
[2019-01-02 12:50] LABS: C-Reactive Protein 5.4 mg/L (<3.00); Potassium 3.8 mmol/L (3.5-5.1)
--- NOTE | 2019-01-02 13:29 | EDPHYS ---
Physician Documentation [facility] Name: Kyra Mead Age: 48 yrs Sex: Female : 1970 Arrival Date: 01/02/2019 Time: 10:13 Bed 20 Private MD: Gaston Dye E ED Physician Sascha Lutz HPI: 01/02 15:49 This 48 yrs old Female presents to ER via Ambulatory with complaints of gs Vision Problem. 15:49 The patient complains of pain to the right zoroastrianism. The patient describes the headache gs as throbbing. Onset: The symptoms/episode began/occurred gradually, yesterday. Associated signs and symptoms: Pertinent positives: flashes of light and floaters. Severity of symptoms: At its worst the pain was severe, in the emergency department the pain has improved, moderately. Headache History: The patient has had previous headaches and this one is different than previous episodes. The symptoms are alleviated by nothing. the symptoms are aggravated by nothing. The patient has not experienced similar symptoms in the past. The patient has not recently seen a physician. 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 - Social history:: Smoking status: Patient/guardian denies using tobacco. - Ebola Screening: : No symptoms or risks identified at this time. ROS: 15:49 All other systems are negative. gs Exam: 15:49 Head/Face: Normocephalic, atraumatic. Eyes: Pupils equal round and reactive to light, gs extra-ocular motions intact. Lids and lashes normal. Conjunctiva and sclera are non-icteric and not injected. Cornea within normal limits. Periorbital areas with no swelling, redness, or edema. ENT: Nares patent. No nasal discharge, no septal abnormalities noted. Tympanic membranes are normal and external auditory canals are clear. Oropharynx with no redness, swelling, or masses, exudates, or evidence of obstruction, uvula midline. Mucous membranes moist. Neck: Trachea midline, no thyromegaly or masses palpated, and no cervical lymphadenopathy. Supple, full range of motion without nuchal rigidity, or vertebral point tenderness. No Meningismus. Chest/axilla: Normal chest wall appearance and motion. Nontender with no deformity. No lesions are appreciated. Cardiovascular: Regular rate and rhythm with a normal S1 and S2. No gallops, murmurs, or rubs. Normal PMI, no JVD. No pulse deficits. Respiratory: Lungs have equal breath sounds bilaterally, clear to auscultation and percussion. No rales, rhonchi or wheezes noted. No increased work of breathing, no retractions or nasal flaring. Abdomen/GI: Soft, non-tender, with normal bowel sounds. No distension or tympany. No guarding or rebound. No evidence of tenderness throughout. Back: No spinal tenderness. No costovertebral tenderness. Full range of motion. Skin: Warm, dry with normal turgor. Normal color with no rashes, no lesions, and no evidence of cellulitis. MS/ Extremity: Pulses equal, no cyanosis. Neurovascular intact. Full, normal range of motion. Neuro: Awake and alert, GCS 15, oriented to person, place, time, and situation. Cranial nerves II-XII grossly intact. Motor strength 5/5 in all extremities. Sensory grossly intact. Cerebellar exam normal. Normal gait. 15:49 Constitutional: The patient appears alert, awake. 15:49 Head/face: Noted is tenderness, that is moderate, of the right temporal area. Vital Signs: 10:16 BP 124 / 69; Pulse 68; Resp 18; Temp 97.5(TE); Pulse Ox 98% on R/A; Weight 99.79 kg; Height 5 ft. 6 in. (167.64 cm); Pain 5/10; 11:34 BP 109 / 59; Pulse 60; Resp 16; Pulse Ox 100% ; bp 12:37 BP 114 / 61; Pulse 59; Resp 16; Pulse Ox 98% ; bp 13:37 BP 108 / 52; Pulse 65; Resp 16; Temp 97.8; Pulse Ox 97% ; bp 10:16 Body Mass Index 35.51 (99.79 kg, 167.64 cm) Jessica Coma Score: 15:49 Eye Response: spontaneous(4). Verbal Response: oriented(5). Motor Response: obeys gs commands(6). Total: 15. MDM: 11:57 Patient medically screened. 15:49 Differential diagnosis: subarachnoid bleed, temporal arteritis, tension headache, gs vasomotor headache. Data reviewed: vital signs, nurses notes, lab test result(s), radiologic studies. Counseling: I had a detailed discussion with the patient and/or guardian regarding: the historical points, exam findings, and any diagnostic results supporting the discharge/admit diagnosis, lab results, radiology results, the need for outpatient follow up, an opthalmologist. Response to treatment: the patient's symptoms have markedly improved after treatment, the patient's symptoms have resolved after treatment, the patient's pain is gone, the patient's condition has returned to base line, and as a result, I will discharge patient. 01/02 11:58 Order name: CRP; Complete Time: 13:15 01/02 11:58 Order name: CBC with Diff; Complete Time: 13:15 01/02 11:58 Order name: Basic Metabolic Panel; Complete Time: 13:15 01/02 11:58 Order name: CT Head Brain wo Cont; Complete Time: 13:15 Administered Medications: 12:15 Drug: Reglan 10 mg Route: IVP; Site: right wrist; bp 12:32 Follow up: Response: Marked relief of symptoms bp 12:15 Drug: Benadryl 25 mg Route: IVP; Site: right wrist; bp 12:32 Follow up: Response: Marked relief of symptoms bp Disposition: 01/02/19 13:27 Discharged to Home. Impression: Visual disturbances, evaluation for temporal arteritis. - Condition is Stable. - Discharge Instructions: General Headache Without Cause, Temporal Arteritis. - Prescriptions for Prednisone 20 mg Oral Tablet - take 2 tablet by ORAL route once daily for 5 days; 10 tablet. - Medication Reconciliation Form, Thank You Letter, Antibiotic Education, Prescription Opioid Use form. - Follow up: Femi Courtney MD; When: 2 - 3 days; Reason: Re-evaluation by your physician. Signatures: Dispatcher [employer] EDMS Boby Vasquez RN RN Sascha Lutz MD MD gs Peltier, Brian, RN RN bp Corrections: (The following items were deleted from the chart) 13:49 13:27 01/02/2019 13:27 Discharged to Home. Impression: Visual disturbances; evaluation bp for temporal arteritis. Condition is Stable. Forms are Medication Reconciliation Form, Thank You Letter, Antibiotic Education, Prescription Opioid Use. Follow up: Femi Courtney; When: 2 - 3 days; Reason: Re-evaluation by your physician. gs
--- NOTE | 2019-01-02 13:29 | ER ---
Nurse's Notes [facility] Name: Kyra Mead Age: 48 yrs Sex: Female : 1970 Arrival Date: 01/02/2019 Time: 10:13 Bed 20 Private MD: Gaston Dye E Diagnosis: Visual disturbances;evaluation for temporal arteritis Presentation: 01/02 10:14 Presenting complaint: Patient states: yesterday i started seeing flashes of lights and hj today i see black lines on my L eye, and im having sore throat and bad headache and my balance is off; denies N/V; denies speech problem and denies weakness;. Transition of care: patient was not received from another setting of care. Onset of symptoms was January 02, 2019. Risk Assessment: Do you want to hurt yourself or someone else? Patient reports no desire to harm self or others. Initial Sepsis Screen: Does the patient meet any 2 criteria? No. Patient's initial sepsis screen is negative. Does the patient have a suspected source of infection? No. Patient's initial sepsis screen is negative. Care prior to arrival: None. 10:14 Method Of Arrival: Ambulatory 10:14 Acuity: CASSY 3 hj Triage Assessment: 10:15 General: Appears in no apparent distress. comfortable, obese, Behavior is cooperative, bp appropriate for age, anxious. Pain: Denies pain. EENT: Reports VISUAL DISTURBANCE. Neuro: No deficits noted. Neuro: Reports dizziness. Cardiovascular: No deficits noted. Respiratory: No deficits noted. GI: No signs and/or symptoms were reported involving the gastrointestinal system. : No signs and/or symptoms were reported regarding the genitourinary system. Derm: No deficits noted. Musculoskeletal: No deficits noted. 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 - Social history:: Smoking status: Patient/guardian denies using tobacco. - Ebola Screening: : No symptoms or risks identified at this time. Screenin:15 Abuse screen: Denies threats or abuse. Denies injuries from another. Nutritional bp screening: No deficits noted. Tuberculosis screening: No symptoms or risk factors identified. Fall Risk None identified. Assessment: 10:15 General: SEE TRIAGE NOTE. bp 11:16 Reassessment: RECD PT AMBULATORY FROM TRIAGE. bp 12:37 Reassessment: PT RETURNED FROM CT. ALL CURRENT ORDERS COMPLETED. bp 13:37 Reassessment: PT D/C ON HOLD PENDING TRANSPORT HOME. bp 13:47 Reassessment: TRANSPORT EN ROUTE. PT D/C HOME AMBULATORY WITH FRIEND, DX WITH VISUAL bp DISTURBANCE. Vital Signs: 10:16 BP 124 / 69; Pulse 68; Resp 18; Temp 97.5(TE); Pulse Ox 98% on R/A; Weight 99.79 kg; hj Height 5 ft. 6 in. (167.64 cm); Pain 5/10; 11:34 BP 109 / 59; Pulse 60; Resp 16; Pulse Ox 100% ; bp 12:37 BP 114 / 61; Pulse 59; Resp 16; Pulse Ox 98% ; bp 13:37 BP 108 / 52; Pulse 65; Resp 16; Temp 97.8; Pulse Ox 97% ; bp 10:16 Body Mass Index 35.51 (99.79 kg, 167.64 cm) hj Jessica Coma Score: 15:49 Eye Response: spontaneous(4). Verbal Response: oriented(5). Motor Response: obeys gs commands(6). Total: 15. ED Course: 10:13 Patient arrived in ED. dl4 10:13 Gaston Dye MD is Private Physician. dl4 10:16 Triage completed. hj 10:18 Arm band placed on right wrist. hj 11:14 Amarjit Garcia, ANIA is Primary Nurse. bp 11:15 Patient has correct armband on for positive identification. Bed in low position. Call bp light in reach. Side rails up X2. 11:25 Sascha Lutz MD is Attending Physician. gs 11:50 Inserted saline lock: 22 gauge in right wrist, using aseptic technique. Blood collected.bp 12:16 CT Head Brain wo Cont In Process Unspecified. EDMS 13:26 Femi Courtney MD is Referral Physician. gs 13:39 No provider procedures requiring assistance completed. IV discontinued, intact, bp bleeding controlled, No redness/swelling at site. Pressure dressing applied. Administered Medications: 12:15 Drug: Reglan 10 mg Route: IVP; Site: right wrist; bp 12:32 Follow up: Response: Marked relief of symptoms bp 12:15 Drug: Benadryl 25 mg Route: IVP; Site: right wrist; bp 12:32 Follow up: Response: Marked relief of symptoms bp Outcome: 13:27 Discharge ordered by . 13:47 Discharged to home ambulatory, with friend. bp 13:47 Condition: stable 13:47 Discharge instructions given to patient, Instructed on discharge instructions, follow up and referral plans. medication usage, Demonstrated understanding of instructions, follow-up care, medications, Prescriptions given X 1. 13:49 Patient left the ED. bp Signatures: Dispatcher [employer] EDMS Boby Vasquez RN RN Sascha Lomeli MD MD gs Peltier, Brian, RN RN Jeromy Alvarez dl4 Corrections: (The following items were deleted from the chart) 10:18 10:16 Pulse 68bpm; Resp 18bpm; Pulse Ox 98% RA; Temp 97.5F Temporal; 99.79 kg; Height 5 hj ft. 6 in.; BMI: 35.5; Pain 5/10; hj
[2019-01-02 14:56] VITALS: BP 108/52; TEMP 97.8; O2SAT 97
== END 2019-01-02 13:49 | disposition home or self-care (01) ==
LOC: ER 10:10
DX: H53.8 Other visual disturbances (principal); R51 Headache; I10 Essential (primary) hypertension; K76.9 Liver disease, unspecified
CPT/HCPCS: 36415; 70450; 80048; 85025; 86140; 96374; 96375; 99284; J2765